=== PATIENT | female | born 1940 | race Caucasian/White ===

== ENCOUNTER 2016-06-09 13:01 | Inpatient (IN) ==
[2016-06-09] MEDS ORDERED: Naloxone 0.4 MG/ML INJ IVP PRN (16:02)
[2016-06-09] MEDS ORDERED: Ondansetron 4 MG/2 ML VIAL IVP PRN (16:02)
[2016-06-09] MEDS ORDERED: 0.9 % Sodium Chloride 1,000 ML IVC SCH (16:15)
--- NOTE | 2016-06-09 16:23 | Internal Med History&Physical ---
<Clifford Noland - Last Filed: 06/09/16 16:19> Date of Encounter: 06/09/16 Time of Encounter: 16:19 Assessment and Plan (1) TIA (transient ischemic attack) Current visit: Yes Status: Acute TIA vs acute CVA, left sided tingling/numbness/weakness improving, will check echo, carotid u/s, PT/OT, fall/aspiration precaution, obtain brain MRI, con't statin, she already received full dose ASA in the ER, since she takes baby ASA daily, will switch to plavix, will obtain brain MRI today. Closely monitor her VS. Qualifiers: Qualified Code(s): G45.9 - Transient cerebral ischemic attack, unspecified (2) History of left breast cancer Current visit: Yes Status: Acute Hx of stage I breast cancer, s/p mastectomy, con't home meds of femara. (3) HLD (hyperlipidemia) Current visit: Yes Status: Acute Check lipid panel, con't statin. Qualifiers: Qualified Code(s): E78.5 - Hyperlipidemia, unspecified (4) Depression Current visit: Yes Status: Acute Con't zoloft. Qualifiers: Qualified Code(s): F32.9 - Major depressive disorder, single episode, unspecified (5) HTN (hypertension) Current visit: Yes Status: Acute Con't atenolol. Qualifiers: Qualified Code(s): I10 - Essential (primary) hypertension (6) DVT prophylaxis Current visit: Yes Status: Acute Heparin SQ BID. Internal Medicine - H&P: HPI Chief complaint: Left sided tingling/numbness Admitted From: Emergency Dept Plans for Post Hospital Care: Home History of present illness: Ms. Steward is a 76 year old female with hx of left stage I breast cancer s/p mastectomy 3 yrs ago, presented to [facility] for left upper extremity tingling/ numbness/weakness when she woke up this AM around 7:30 AM, also she felt left sided facial numbness but no drooping or slurred speech. No hx of prior CVA or TIA. She takes baby ASA and statin at home, no hx of DM or CAD but HTN in which she takes atenolol, her BP is stable at home. When I saw her in the room she stated that her tingling/numbness has improved. CT of head w/o contrast at [facility] showed no acute process, she was given full dose ASA in the ER. Past Med Surg Social Fam HX - Past Medical History Medical history: cancer (left stage I breast), GERD, hypertension Psychiatric history: depression - Past Surgical History Surgical History: breast surgery, hysterectomy, orthopedic, other - Social History Smoking Status: Never smoker Alcohol use: none Drug use: none - Family History Mother Hx Family Cardiac Disorders: Yes (CABG) Internal Medicine - H&P: Meds Atenolol [Tenormin] 50 mg PO DAILY 12/27/14 [History] Cyclobenzaprine [Flexeril] 10 mg PO TID PRN 12/27/14 [History] Lovastatin [Mevacor] 20 mg PO HS 12/27/14 [History] Omeprazole [Prilosec] 40 mg PO BID 12/27/14 [History] Tizanidine HCl [Zanaflex] 4 mg PO Q8H PRN 12/27/14 [History] Gabapentin [Neurontin] 600 mg PO TID 12/29/14 [History] Letrozole 2.5 mg PO DAILY #90 tablet 12/29/14 [Rx] Magnesium [Magnesium] 300 mg PO DAILY 12/29/14 [History] Aspirin 325 mg PO DAILY 12/28/15 [History] Forreston-3/Dha/Epa/Fish Oil [Fish Oil] 1,000 mg PO DAILY 12/28/15 [History] Diclofenac Sodium [Voltaren] 50 mg PO BID 06/09/16 [History] Duloxetine [Cymbalta] 30 mg PO DAILY 06/09/16 [History] Trazodone HCl 200 mg PO HS 06/09/16 [History] Allergies No Known Allergies Allergy (Verified 12/29/14 13:11) All Systems PM: A 10-system review of systems was performed and is negative for pertinent findings except as documented above in the HPI. Review of systems: Admits left facial and upper extremity tingling/numbness/slight weakness but denies FLORES, fever/chill, slurred speech, double/blurry vision, SOB, chest pain, abd pain, nausea/emesis or dysuria. - Constitutional Vitals: Temp Pulse Resp BP Pulse Ox 97.8 F 61 15 151/92 96 06/09/16 14:50 06/09/16 14:50 06/09/16 14:50 06/09/16 14:50 06/09/16 14:50 General appearance: Present: cooperative, A&O X 3, pleasant, no acute distress, answers questions appropriately - Head Head exam: Present: atraumatic, normocephalic - Eye Eye exam: Present: PERRL, conjuntiva pink, sclera anicteric Pupils: Present: PERRL - Neck Neck exam general surgery: Present: supple, trachea midline. Absent: lymphadenopathy - Respiratory Respiratory exam: Present: CTAB. Absent: accessory muscle use, rales, rhonchi, wheezes - Cardiovascular Cardiovascular exam: Present: RRR, +S1, +S2. Absent: diastolic murmur, gallop, rubs, systolic murmur - GI/Abdominal GI/Abdominal exam: Present: normal bowel sounds, soft, no peritoneal signs. Absent: distended, tenderness - Extremities Exam Extremities exam: Present: warm, radial pulses palpable and symetrical. Absent : calf tenderness, cyanotic, pedal edema - Neurological Exam Neurological exam: Present: alert, CN II-XII intact, oriented X3. Absent: altered, strengths equal and symetr throughout (left upper extremity 4/5 muscle strenth, rest are fine), pronater drift, facial droop, speech deficit - Skin Skin exam: Present: dry, intact <Keenan Stone - Last Filed: 06/09/16 18:14> Date of Encounter: 06/09/16 Assessment and Plan (1) TIA (transient ischemic attack) Current visit: Yes Status: Acute Qualifiers: Transient cerebral ischemia type: other Qualified Code(s): G45.8 - Other transient cerebral ischemic attacks and related syndromes (2) Acute CVA (cerebrovascular accident) Current visit: Yes Status: Suspected (3) HTN (hypertension) Current visit: Yes Status: Acute Qualifiers: Hypertension type: essential hypertension Qualified Code(s): I10 - Essential (primary) hypertension (4) Breast cancer, left Current visit: No Status: Chronic Qualifiers: Breast location: unspecified site of breast Patient sex: female Qualified Code(s): C50.912 - Malignant neoplasm of unspecified site of left female breast (5) HLD (hyperlipidemia) Current visit: Yes Status: Acute Qualifiers: Hyperlipidemia type: mixed hyperlipidemia Qualified Code(s): E78.2 - Mixed hyperlipidemia (6) Depression Current visit: Yes Status: Acute Qualifiers: Depression Type: major depressive disorder Major depression recurrence: single episode Active/Remission status: in full remission Qualified Code(s) : F32.5 - Major depressive disorder, single episode, in full remission Internal Medicine - H&P: HPI History of present illness: Ms. Steward is a 76 year old female All Systems PM: A 10-system review of systems was performed and is negative for pertinent findings except as documented above in the HPI. - Constitutional Vitals: Temp Pulse Resp BP Pulse Ox 97.8 F 61 15 151/92 96 06/09/16 14:50 06/09/16 14:50 06/09/16 14:50 06/09/16 14:50 06/09/16 14:50 - Attending Attestation I examined this patient and my medical decision-making was reviewed with the Resident Physician on 06/09/16. I agree with the documented findings, disposition and treatment plan as described except to the extent set forth below. Ms. Steward is a 76 y/o female with hx of breast cancer transferred from another hospital due to concern for CVA. She awoke this morning with L facial numbness and LUE tingling. CT of head negative for bleed. No prior hx of CVA. She does have hx of HTN. Currently she feels her symptoms are slightly improved. Her last known well time was last evening. Exam Alert. Comfortable Facial asymmetry noted. Appears to have tongue deviating to R. Heart reg Lungs clear Sensation and strength appear equal bilaterally. Swallow eval performed with water, applesauce and ron cracker. Pt did well with all food/drink and no overt aspiration was noted. I/P 1. Acute CVA - versus TIA. On Plavix. MRI. PT/OT/ST. 2. Breast cancer hx 3. HTN Pt is high risk for further neurological complications and is admitted to inpatient status.
[2016-06-09] MEDS: *HR* Heparin 5,000 UNIT/ML VIAL SQ SCH (18:51)
--- NOTE | 2016-06-09 22:11 | Carotid Imaging Report ---
Carotid Duplex Patient Name:Mary Steward Order Number:[id number] Procedure Date:06/09/2016 Date:1Age:76 yrs Gender:Female Rt.BP:151 / 92 mmHgHeart Rate: Location:[facility] Room #: 2NE18 Behavioral Technician:Delmy Chow KYREE Referring MD:Clifford Noland DO pizza delivery driver:Rodríguez Sousa DO Reading MD:Clifford Bailey MD Primary Indications:TIA vs CVA Risk Factors Yes/No Hypertension Yes Impressions: The bilateral carotid arteries are normal throughout. Recommendations: Test completed on 06/09/2016 at 7:22:00 pm. Findings Carotid Duplex: Rivers scale imaging combined with Doppler flow analysis suggests normal findings bilaterally. Right: The right proximal common carotid artery has a PSV of 71 cm/s and a EDV of 11 cm/s. The right mid common carotid artery has a PSV of 65 cm/s and a EDV of 16 cm/s. The right distal common carotid artery has a PSV of 66 cm/s and a EDV of 14 cm/s. The right bifurcation has a PSV of 59 cm/s and a EDV of 16 cm/s. The right proximal internal carotid artery has a PSV of 54 cm/s and a EDV of 19 cm/s. The right mid internal carotid artery has a PSV of 71 cm/s and a EDV of 17 cm/s. The right distal internal carotid artery has a PSV of 67 cm/s and a EDV of 22 cm/s. The right eca has a PSV of 88 cm/s and a EDV of 14 cm/s. The right vertebral artery has a PSV of 53 cm/s and a EDV of 17 cm/s. There is antegrade spectral Doppler flow patterns. Left: The left proximal common carotid artery has a PSV of 86 cm/s and a EDV of 24 cm/s. The left mid common carotid artery has a PSV of 76 cm/s and a EDV of 17 cm/s. The left distal common carotid artery has a PSV of 72 cm/s and a EDV of 18 cm/s. The left bifurcation has a PSV of 50 cm/s and a EDV of 13 cm/s. The left proximal internal carotid artery has a PSV of 80 cm/s and a EDV of 23 cm/s. The left mid internal carotid artery has a PSV of 85 cm/s and a EDV of 27 cm/s. The left distal internal carotid artery has a PSV of 90 cm/s and a EDV of 27 cm/s. The left eca has a PSV of 96 cm/s and a EDV of 17 cm/s. The left vertebral artery has a PSV of 45 cm/s and a EDV of 11 cm/s. There is antegrade spectral Doppler flow patterns. Prior Study: No prior study available for comparison. Carotid Results Right PSV EDV Assessment Proximal CCA 71 11 Mid CCA 65 16 Distal CCA 66 14 Bifurcation 59 16 Proximal ICA 54 19 Mid ICA 71 17 Distal ICA 67 22 ECA 88 14 Vertebral Artery 53 17 Antegrade Flow Left PSV EDV Assessment Proximal CCA 86 24 Mid CCA 76 17 Distal CCA 72 18 Bifurcation 50 13 Proximal ICA 80 23 Mid ICA 85 27 Distal ICA 90 27 ECA 96 17 Vertebral Artery 45 11 Antegrade Flow Ratio's Right ICA/CCA Ratio: 1.03 ICA/CCA Values: 67/65 Left ICA/CCA Ratio: 1.18 ICA/CCA Values: 90/76 Updated by Clifford Bailey MD on 06/09/2016 10:05:37 PM electronically signed on 06/09/2016 10:05:57 PM with status of Final
[2016-06-10] MEDS ORDERED: Acetaminophen 325 MG TABLET PO PRN (00:20)
[2016-06-10 04:52] LABS: Basophils % 0.7 %; Eosinophils # 0.3 K/mcL (0.0-0.6); Eosinophils % 4.9 %; Hematocrit 39.8 % (35.3-44.9); Hemoglobin 13.2 g/dL (11.5-15.4); Immature Granulocytes % 0.3 % (0-4); Lymphocytes % 32.7 %; Mean Corpuscular HGB Conc 33.2 g/dL (31.6-35.5); Mean Corpuscular Hemoglobin 31.1 pg (28.0-33.3); Mean Corpuscular Volume 93.9 fL (83.0-100.0); Mean Platelet Volume 11.1 fL (9.4-12.4); Monocytes # 0.8 K/mcL (0.0-1.3); Monocytes % 13.3 %; Neutrophils # 2.9 K/mcL (1.6-8.9); Platelet Count 179 K/mcL (140-400); Red Blood Count 4.24 M/mcL (3.82-4.97); Red Cell Distribution Width 13.4 % (11.5-14.5); Segmented Neutrophils % 48.1 %
[2016-06-10 05:08] LABS: BUN/Creatinine Ratio 12 (6-26); Blood Urea Nitrogen 11 mg/dL (7-20); Calcium 8.9 mg/dL (8.6-10.8); Carbon Dioxide 22 mEq/L (19-29); Chloride 110 mEq/L (98-109); Chol/HDL Ratio 6.2 (0-4.9); Cholesterol 156 mg/dL (< 200); Glucose 115 mg/dL (70-99); HDL Cholesterol 25 mg/dL (40-59); LDL Cholesterol,Calculated 98 mg/dL (0-99); Osmolality,Calculated 292 (280-300); Potassium 3.8 mEq/L (3.5-4.5); Sodium 141 mEq/L (136-145); Triglycerides 164 mg/dL (< 150); eGFR For African Americans > 60 (> 60); eGFR For Non-African Americans 58 (> 60)
--- NOTE | 2016-06-10 08:04 | Internal Med Progress Note ---
<Clifford Noland - Last Filed: 06/10/16 10:51> Date of Encounter: 06/10/16 Time of Encounter: 08:04 - Assessment and plan (1) Acute CVA (cerebrovascular accident) Current Visit: Yes Status: Suspected Assessment and plan: Brain MRI showed acute microinfarcts w/in right precentral gyrus and w/in left parietotemporal lobe, echo showed evidence of anurysmal interatrial septal PFO, because of location two different area of cva, concern for embolic stroke, hx of breast cancer on femara currently, she will need hypercoagulable workup as outpt, meanwhile, will obtain doppler b/l LE u/s to r/o blood clots, will consult neuro for any recommendation for anticoagulation vs antiplatelet therapy , she takes baby ASA daily therefore switched to plavix today. PT/OT to evaluate this pt. (2) History of left breast cancer Current Visit: Yes Status: Acute Assessment and plan: Hx of stage I breast cancer, s/p mastectomy, con't home meds of femara. (3) HLD (hyperlipidemia) Current Visit: Yes Status: Acute Assessment and plan: Lipid panel reviewed, con't statin. Qualifiers: Hyperlipidemia type: mixed hyperlipidemia Qualified Code(s): E78.2 - Mixed hyperlipidemia (4) Depression Current Visit: Yes Status: Acute Assessment and plan: Con't zoloft. Qualifiers: Depression Type: major depressive disorder Major depression recurrence: single episode Active/Remission status: in full remission Qualified Code(s) : F32.5 - Major depressive disorder, single episode, in full remission (5) HTN (hypertension) Current Visit: Yes Status: Acute Assessment and plan: Con't atenolol. Qualifiers: Hypertension type: essential hypertension Qualified Code(s): I10 - Essential (primary) hypertension (6) DVT prophylaxis Current Visit: Yes Status: Acute Assessment and plan: Heparin SQ BID. - Subjective Interval history: Pt seen and examined, left UE tingling/numbness improved, no facial tingling, eating fine. - Constitutional Vitals: Temp Pulse Resp BP Pulse Ox 98.5 F 80 15 149/92 93 L 06/10/16 07:41 06/10/16 07:41 06/10/16 07:41 06/10/16 07:41 06/10/16 07:41 General appearance: Present: cooperative, A&O X 3, pleasant, no acute distress, answers questions appropriately - Head Head exam: Present: atraumatic, normocephalic - Eye Eye exam: Present: PERRL, conjuntiva pink, sclera anicteric Pupils: Present: PERRL - Neck Neck exam general surgery: Present: supple, trachea midline. Absent: lymphadenopathy - Respiratory Respiratory exam: Present: CTAB. Absent: accessory muscle use, rales, rhonchi, wheezes - Cardiovascular Cardiovascular exam: Present: RRR, +S1, +S2. Absent: diastolic murmur, gallop, rubs, systolic murmur - GI/Abdominal GI/Abdominal exam: Present: normal bowel sounds, soft, no peritoneal signs. Absent: distended, tenderness - Extremities Exam Extremities exam: Present: warm, radial pulses palpable and symetrical. Absent : calf tenderness, cyanotic, pedal edema - Neurological Exam Neurological exam: Present: CN II-XII intact, oriented X3, no focal deficits. Absent: pronater drift, facial droop, speech deficit - Skin Skin exam: Present: dry, intact Internal Medicine: Result - Labs CBC & Chem 7: 06/10/16 04:36 06/10/16 04:36 Labs: Short CBC 06/10/16 Range/Units 04:36 WBC 6.0 (4.3-11.1) K/mcL Hgb 13.2 (11.5-15.4) g/dL Hct 39.8 (35.3-44.9) % Plt Count 179 (140-400) K/mcL Neutrophils # 2.9 (1.6-8.9) K/mcL BMP 06/10/16 04:36 Sodium 141 Potassium 3.8 Chloride 110 H Carbon Dioxide 22 BUN 11 Creatinine 0.94 Glucose 115 H Calcium 8.9 - Impressions Impressions Brain MRI 06/09/16 16:06 IMPRESSION: Acute microinfarcts within the right precentral gyrus and within the left parietotemporal lobe. The findings were sent to the Radiology Results Communication Center at 9:56 pm on 06/09/2016to be communicated to a licensed caregiver. D/ / Gagandeep Florian MD / Gagandeep Florian MD Interpreting Provider: Gagandeep Florian MD Consult Discharge Plan - Plan Referrals: Rodríguez Sousa DO [Primary Care Provider] - <Keenan Stone - Last Filed: 06/10/16 16:21> Date of Encounter: 06/10/16 - Assessment and plan (1) Cerebrovascular accident (CVA) due to bilateral embolism of middle cerebral arteries Current Visit: Yes Status: Acute (2) Patent foramen ovale with atrial septal aneurysm Current Visit: Yes Status: Chronic (3) Acute CVA (cerebrovascular accident) Current Visit: Yes Status: Suspected (4) HTN (hypertension) Current Visit: Yes Status: Acute Qualifiers: Hypertension type: essential hypertension Qualified Code(s): I10 - Essential (primary) hypertension (5) Breast cancer, left Current Visit: No Status: Chronic Qualifiers: Breast location: unspecified site of breast Patient sex: female Qualified Code(s): C50.912 - Malignant neoplasm of unspecified site of left female breast (6) HLD (hyperlipidemia) Current Visit: Yes Status: Acute Qualifiers: Hyperlipidemia type: mixed hyperlipidemia Qualified Code(s): E78.2 - Mixed hyperlipidemia (7) Depression Current Visit: Yes Status: Acute Qualifiers: Depression Type: major depressive disorder Major depression recurrence: single episode Active/Remission status: in full remission Qualified Code(s) : F32.5 - Major depressive disorder, single episode, in full remission - Constitutional Vitals: Temp Pulse Resp BP Pulse Ox 98.1 F 70 15 157/81 93 L 06/10/16 15:54 06/10/16 15:54 06/10/16 15:54 06/10/16 15:54 06/10/16 15:54 Internal Medicine: Result - Labs CBC & Chem 7: 06/10/16 04:36 06/10/16 04:36 Labs: Short CBC 06/10/16 Range/Units 04:36 WBC 6.0 (4.3-11.1) K/mcL Hgb 13.2 (11.5-15.4) g/dL Hct 39.8 (35.3-44.9) % Plt Count 179 (140-400) K/mcL Neutrophils # 2.9 (1.6-8.9) K/mcL BMP 06/10/16 04:36 Sodium 141 Potassium 3.8 Chloride 110 H Carbon Dioxide 22 BUN 11 Creatinine 0.94 Glucose 115 H Calcium 8.9 - Impressions Impressions Brain MRI 06/09/16 16:06 IMPRESSION: Acute microinfarcts within the right precentral gyrus and within the left parietotemporal lobe. The findings were sent to the Radiology Results Communication Center at 9:56 pm on 06/09/2016to be communicated to a licensed caregiver. D/ / Gagandeep Florian MD / Gagandeep Florian MD Interpreting Provider: Gagandeep Florian MD - Attending Attestation I examined this patient and my medical decision-making was reviewed with the Resident Physician on 06/10/16. I agree with the documented findings, disposition and treatment plan as described except to the extent set forth below. Ms. Steward is currently admitted for acute CVA. She remains high risk due to the potential of worsening neurologic symptoms and potential of further ischemic event. Echo shows PFO and anticoagulation to be started. Ms. Steward appears to be doing better this AM. She is sitting up in chair. Family is visiting. Symptoms seem to have resolved. She is not having any new symptoms and is tolerating diet. MRI showed multiple small CVAs. Exam Alert Comfortable Heart reg Lungs no wheeze Facial weakness and tongue deviation seem better today. I/P 1. Acute bilateral CVAs - most likely cardioembolic. Start coumadin anticoagulation. 2. PFO 3. HTN Further diagnoses and plan as above.
--- NOTE | 2016-06-10 08:04 | ECHO - Doppler Report ---
Echo with Saline Contrast Name: Mary Steward Date of Study: 06/09/2016 Date: 1940 Ht: 67.0 in Medical Record#: [id number] Age: 76 Wt: 225.0 lb Gender: Female BSA: 2.13 Order #: [id number] Location: [facility] Room #: 2NE18 Reading Physician: Hao Calle DO, AMARI, YANNI BANSAL Yarn Worker: Delmy Chow RDCS Ordering Physician: Clifford Noland DO Primary Physician: Rodríguez Sousa DO Indications: Transient Ischemic Attack, Cerebrovascular Accident Impressions: LVEF 60-65%. Normal LV chamber size, wall thickness and function. Mild left ventricular diastolic dysfunction. Normal right ventricular structure and function. Unable to estimate RVSP due to lack of TR jet. No significant valvular dysfunction. Aneurysmal interatrial septal with evidence of a PFO with right to left shunt with agitated saline. Left Ventricular Wall Motion: Rest Echo Findings All wall segments showed normal motion. Findings: Study Quality * Technically adequate exam. ECG Findings * Normal sinus rhythm. Left Ventricle * LVEF 60-65%. * Normal LV chamber size, wall thickness and function. * Mild left ventricular diastolic dysfunction. Right Ventricle * Normal right ventricular structure and function. Left Atrium * Mildly dilated left atrium. Right Atrium * Normal right atrial size. Interatrial Septum * Aneurysmal interatrial septal with evidence of a PFO with right to left shunt with agitated saline. Aortic Valve * Trileaflet aortic valve. * Mildly sclerotic aortic valve leaflets. * No aortic regurgitation. * No aortic stenosis. Mitral Valve * Mild mitral annular calcification * No mitral regurgitation. * No mitral stenosis. Tricuspid Valve * Normal tricuspid valve structure and function. * No tricuspid regurgitation. * Unable to estimate RVSP due to lack of TR jet. Pulmonic Valve * Normal pulmonic valve structure and function. * Trace pulmonic regurgitation. Aorta * Normally sized aortic root. Pericardium * The pericardium appears normal. IVC * The IVC is not well evaluated. Pulmonary Artery * Pulmonary artery not well visualized. History Hypertension Family History of CAD Contrast: Agitated saline 10 ml. Measurements: BP: 151/ 91 2D Normal Values RVIDd: 3.31 cm <2.7 cm IVSd: .98 cm 0.6 - 1.0 cm LVIDd: 5.19 cm 3.7 - 5.6 cm LVPWd: .95 cm 0.6 - 1.1 cm LVIDs: 2.73 cm 1.5 - 3.6 cm AO: 2.70 cm < 4.0 cm LA: 4.40 cm 2.0 - 4.0cm %FS: 47.40 cm >25 % LA volume: 35 Mitral Valve Peak E:.68 m/sec Peak A:.92 m/sec E/A Ratio:0.7 Peak E' Lat Sharif:7.83 cm/s Peak E' Med Sharif:5.72 cm/s E/E' Lat Ratio:8.7 E/E' Med Ratio:11.9 Updated by Hao Calle DO, FACRodrigo, NIMISHA, YANNI on 06/10/2016 8:00:15 AM electronically signed on 06/10/2016 8:01:25 AM with status of Final Wall Motion Franks: 1=Normal, 2=Hypokinesis, 3=Akinesis, 4=Dyskinesis, 5=Aneurysmal, 6=Hyperkinetic, X=Not Visualized (Blank)=Missing
[2016-06-10] MEDS: Letrozole 2.5 MG TABLET PO SCH (08:47)
[2016-06-10] MEDS: *HR* Heparin 5,000 UNIT/ML VIAL SQ SCH (08:48)
--- NOTE | 2016-06-10 15:57 | Neurology - Consult Note ---
Date of Encounter: 06/10/16 Time of Encounter: 15:48 Assessment and Plan (1) Acute CVA (cerebrovascular accident) Current Visit: Yes Status: Suspected Pt has experienced acute bihemispheric cerebral infarcts. This occurred in the face of an aneurysmal anteroseptal atrial defect with PFO. She does have a right to left shunt. We will more than likely dealing with a cardioembolic event. At this point she is however back to her normal baseline. The infarcts on MRI which I did review personally are very small. I do not believe there would be any harm in starting her with oral anticoagulation without having to do an IV bridge and titrate to effect as an outpatient. The carotid duplex Doppler preliminary report is normal. Case was discussed with the internal medicine team. Certainly risk factor management is paramount in this case. She does have a history of hypertension as well as hyperlipidemia. I will reevaluate her at your request. The documentation in the history of HPI and plan were at least partially created by [employer] voice recognition technology by Dr. Ledezma. Errors in grammar, wording or other phrases may exist. If errors are found after the documentation signed, they will be addressed individually in the addendum section of this document when appropriate. History of Present Illness HPI: Ms. Steward is a 76 year old female seen for neurologic consultation secondary michelle is being seen for neurologic consultation due to acute cerebral infarcts. She recalls awakening from her sleep with paresthesias involving the left face and arm. She also c/o LUE weakness initially. She denies any slurred speech. Denies visual changes. She did have a headache last night which is resolved. all of her deficits have since resolved. MRI of the brain does reveal small infarcts of the right precentral gyrus, as well as the left parietal lobe region. Echo cardigram reveals aneurysmal interatrial septum with PFO and R to L shunt. she has been up moving around and feels back to normal. Past Med Surg Social Fam HX - Past Medical History Medical history: cancer (left stage I breast), GERD, hypertension Psychiatric history: depression - Past Surgical History Surgical History: breast surgery, hysterectomy, orthopedic, other - Social History Smoking Status: Never smoker Alcohol use: none Drug use: none - Family History Mother Hx Family Cardiac Disorders: Yes (CABG) Medications and Allergies Atenolol [Tenormin] 50 mg PO DAILY 12/27/14 [History] Cyclobenzaprine [Flexeril] 10 mg PO TID PRN 12/27/14 [History] Lovastatin [Mevacor] 20 mg PO HS 12/27/14 [History] Omeprazole [Prilosec] 40 mg PO BID 12/27/14 [History] Tizanidine HCl [Zanaflex] 4 mg PO Q8H PRN 12/27/14 [History] Gabapentin [Neurontin] 600 mg PO TID 12/29/14 [History] Letrozole 2.5 mg PO DAILY #90 tablet 12/29/14 [Rx] Magnesium [Magnesium] 300 mg PO DAILY 12/29/14 [History] Aspirin 325 mg PO DAILY 12/28/15 [History] [place]-3/Dha/Epa/Fish Oil [Fish Oil] 1,000 mg PO DAILY 12/28/15 [History] Diclofenac Sodium [Voltaren] 50 mg PO BID 06/09/16 [History] Duloxetine [Cymbalta] 30 mg PO DAILY 06/09/16 [History] Trazodone HCl 200 mg PO HS 06/09/16 [History] Allergies No Known Allergies Allergy (Verified 12/29/14 13:11) All Systems: A 10-system review of systems was performed and is negative for pertinent findings except as documented above in the HPI. Review of Systems: 10 point ROS is consistent with the HPI and otherwise negative. Physical Examination - Vital Signs Vital Signs: Initial Vital Signs Temp Pulse Resp BP Pulse Ox 97.8 F 61 15 151/92 96 06/09/16 14:50 06/09/16 14:50 06/09/16 14:50 06/09/16 14:50 06/09/16 14:50 - Neurologic Detailed motor examination: full strength in all major muscle groups Motor examination - right side: 5/5: deltoids, biceps, triceps, wrist flexion, wrist extension, carpenter packing, hip flexors, tibialis Anterior, quadriceps, toe extension (EHL), plantarflexion Motor examination - left side: 5/5: deltoids, biceps, triceps, wrist flexion, wrist extension, hip flexors, carpenter packing, quadriceps, tibialis Anterior, toe extension (EHL), plantarflexion Reflexes: Biceps: 2+, Triceps: 2+, Brachioradialis: 2+, Patella: 0, Achilles: 0 Mental Status Examination: awake, alert, oriented to person, oriented to place, oriented to time, follows commands appropriately, answers questions appropriately, no agnosia, no aphasia, no aproxia Cranial nerve examination: PERRL, EOMI, visual english intact, corneal reflexes brisk symmetrically, sensory to face intact, mastication intact, no facial asymmetry is present, no dysarthria, hearing is intact symmetrically, soft palate elevates bilaterally upon phonation, gag reflex intact, flexes SCM and trapezius muscles symmetrically with full power, tongue protrudes midline, no atrophy or facial fasiculations present Cerebellar examination: no dysmetria, performs finger to nose and heel to vergara symmetrically without ataxia, no gait ataxia, no truncal ataxia, no difficulty with rapid alternating movements Results - Laboratory Findings CBC and BMP: 06/10/16 04:36 06/10/16 04:36 Abnormal lab findings: Abnormal lab results Chloride 110 mEq/L (98-109) H 06/10/16 04:36 Est GFR (Non-Af Amer) 58 (> 60) L 06/10/16 04:36 Glucose 115 mg/dL (70-99) H 06/10/16 04:36 Triglycerides 164 mg/dL (< 150) H 06/10/16 04:36 VLDL Cholesterol, Calc 33 mg/dL (< 31) H 06/10/16 04:36 HDL Cholesterol 25 mg/dL (40-59) L 06/10/16 04:36 Cholesterol/HDL Ratio 6.2 (0-4.9) H 06/10/16 04:36 Consult Discharge Plan - Plan Referrals: Rodríguez Sousa DO [Primary Care Provider] -
[2016-06-10] MEDS ORDERED: *HR* Warfarin 5 MG TABLET PO SCH (18:00)
[2016-06-11 06:16] LABS: INR 1.1
[2016-06-11 07:06] VITALS: BP 151/91
--- NOTE | 2016-06-11 07:45 | Discharge Summary ---
<Clifford Noland - Last Filed: 06/11/16 10:21> Date of Encounter: 06/11/16 Time of Encounter: 07:45 - Discharge Diagnosis (1) Acute CVA (cerebrovascular accident) Priority: Primary Status: Suspected (2) History of left breast cancer Priority: Secondary Status: Acute (3) HLD (hyperlipidemia) Priority: Secondary Status: Acute Qualifiers: Hyperlipidemia type: mixed hyperlipidemia Qualified Code(s): E78.2 - Mixed hyperlipidemia (4) Depression Priority: Secondary Status: Acute Qualifiers: Depression Type: major depressive disorder Major depression recurrence: single episode Active/Remission status: in full remission Qualified Code(s) : F32.5 - Major depressive disorder, single episode, in full remission (5) HTN (hypertension) Priority: Secondary Status: Acute Qualifiers: Hypertension type: essential hypertension Qualified Code(s): I10 - Essential (primary) hypertension (6) DVT prophylaxis Priority: Secondary Status: Acute - Discharge Medications Prescriptions: Warfarin [Coumadin] 5 mg PO 1800 #30 tablet Home Medications: Atenolol [Tenormin] 50 mg PO DAILY 12/27/14 [History] Cyclobenzaprine [Flexeril] 10 mg PO TID PRN 12/27/14 [History] Lovastatin [Mevacor] 20 mg PO HS 12/27/14 [History] Omeprazole [Prilosec] 40 mg PO BID 12/27/14 [History] Tizanidine HCl [Zanaflex] 4 mg PO Q8H PRN 12/27/14 [History] Gabapentin [Neurontin] 600 mg PO TID 12/29/14 [History] Letrozole 2.5 mg PO DAILY #90 tablet 12/29/14 [Rx] Magnesium 300 mg PO DAILY 12/29/14 [History] [place]-3/Dha/Epa/Fish Oil [Fish Oil Dr 500 mg Softgel] 1,000 mg PO DAILY [History] Diclofenac Sodium [Voltaren] 50 mg PO BID 06/09/16 [History] Duloxetine [Cymbalta] 30 mg PO DAILY 06/09/16 [History] Trazodone HCl 200 mg PO HS 06/09/16 [History] Sertraline [Zoloft] 50 mg PO DAILY tablet 06/11/16 [Rx] Warfarin [Coumadin] 5 mg PO 1800 #30 tablet 06/11/16 [Rx] Allergies/Adverse Reactions: Allergies No Known Allergies Allergy (Verified 12/29/14 13:11) Procedures/tests Complete & Pending: Procedures Performed prior 72 hours Category Date Time Status MR head/brain wo con [MR] Routine MRI 06/09/16 16:06 Completed EV carotid duplex imaging BI Routine Y 06/09/16 16:06 Completed EV echocardiogram Routine Y 06/09/16 15:50 Completed Venous Doppler [EV venous imaging LE BI] Routine Y 06/10/16 10:47 Completed Date of admission: 06/09/16 18:05 Primary care physician: Rodríguez Sousa, Consults: 06/09/16 15:40 Consult to Radio Sportscaster [CONS] Routine Reason for SW Consult: discharge planning Consult to Speech Therapy [CONS] Stat Comment: Evaluate, develop and implement POC Reason for Consult: dysphagia screen Call Completed: Yes 06/09/16 16:05 Consult to Occupational Therapy [CONS] Routine Comment: Evaluate, develop and implement POC Consult to Physical Therapy [CONS] Routine Comment: Evaluate, develop and implement POC 06/09/16 22:35 Consult to Neurology [CONS] Routine Consulting Provider: Neurology [facility] Reason for Consult: Pt with left sided-tingling/numbness x 15 hours. MRI with lacunar infarcts in right precentral gyrus and left parietal-temporal lobe. Please see patient and advise. Call Completed: No Discharging clinician: Clifford Noland Anticipated date of discharge: 06/11/16 - Patient Status Disposition: Home, Self-Care Condition: Good Functional capacity at discharge: uses cane/walker (fall precaution) Overall status at discharge: patient is progressing back to baseline - Discharge Instructions Instructions: Lovastatin (By mouth), Warfarin (By mouth), Peripheral Vascular Disorders (DC), Ischemic Stroke (DC), Ischemic Stroke (GEN), Chronic Hypertension (DC) Follow Up With: Rodríguez Sousa, [Primary Care Provider] - (F/u in a week for hospital d/ c f/u, coumadin therapy, check INR, hypercoagulable work or referral to hem/onc and other meds.) Additional Instructions: Patient and family educated to follow up with [facility] at [phone]. Prescription also given to patient family. She will need to follow up with them to monitor her PT/INR and further education on diet and medication interactions. Lalitha RN - Diet and Activity Activity: resume usual activities as tolerated Diet: low fat, low cholesterol, low salt diet Hospital course: Ms. Steward is a 76 year old female with hx of left stage I breast cancer s/p mastectomy 3 yrs ago, presented to [place] [facility] for left upper extremity tingling/ numbness/weakness when she woke up, brain mri showed acute microinfarcts w/in right precentral gyrus and w/in left parietotemporal lobe, echo showed evidence of anurysmal interatrial septal PFO, because of location two different area of cva, concern for embolic stroke, neuro consulted and recommended anticoagulation , PT/OT said no rehab needed, carotic and b/l LE u/s were normal, therefore she will be d/c today with coumadin, f/u with coumadin clinic for INR check. - Time Spent with Patient Total time spent providing and/or coordinating discharge services: - Constitutional Vitals: Temp Pulse Resp BP Pulse Ox 98.4 F 72 15 151/91 95 06/11/16 07:04 06/11/16 07:04 06/11/16 07:04 06/11/16 07:04 06/11/16 07:04 General appearance: Present: cooperative, A&O X 3, pleasant, no acute distress, answers questions appropriately - Head Head exam: Present: atraumatic, normocephalic - Eye Eye exam: Present: PERRL, conjuntiva pink, sclera anicteric Pupils: Present: PERRL - Neck Neck exam general surgery: Present: supple, trachea midline. Absent: lymphadenopathy - Respiratory Respiratory exam: Present: CTAB. Absent: accessory muscle use, rales, rhonchi, wheezes - Cardiovascular Cardiovascular exam: Present: RRR, +S1, +S2. Absent: diastolic murmur, gallop, rubs, systolic murmur - GI/Abdominal GI/Abdominal exam: Present: normal bowel sounds, soft, no peritoneal signs. Absent: distended, tenderness - Extremities Exam Extremities exam: Present: warm, radial pulses palpable and symetrical. Absent : calf tenderness, cyanotic, pedal edema - Neurological Exam Neurological exam: Present: CN II-XII intact, oriented X3, no focal deficits. Absent: pronater drift, facial droop, speech deficit - Skin Skin exam: Present: dry, intact <Keenan Stone A - Last Filed: 06/11/16 13:05> Date of Encounter: 06/11/16 - Discharge Diagnosis (1) Cerebrovascular accident (CVA) due to bilateral embolism of middle cerebral arteries Priority: Primary Status: Acute (2) Patent foramen ovale with atrial septal aneurysm Priority: Primary Status: Chronic (3) Acute CVA (cerebrovascular accident) Priority: Primary Status: Suspected (4) HTN (hypertension) Priority: Secondary Status: Acute Qualifiers: Hypertension type: essential hypertension Qualified Code(s): I10 - Essential (primary) hypertension (5) Breast cancer, left Priority: Secondary Status: Chronic Qualifiers: Breast location: unspecified site of breast Patient sex: female Qualified Code(s): C50.912 - Malignant neoplasm of unspecified site of left female breast (6) HLD (hyperlipidemia) Priority: Secondary Status: Acute Qualifiers: Hyperlipidemia type: mixed hyperlipidemia Qualified Code(s): E78.2 - Mixed hyperlipidemia (7) Depression Priority: Secondary Status: Acute Qualifiers: Depression Type: major depressive disorder Major depression recurrence: single episode Active/Remission status: in full remission Qualified Code(s) : F32.5 - Major depressive disorder, single episode, in full remission Procedures/tests Complete & Pending: Procedures Performed prior 72 hours Category Date Time Status MR head/brain wo con [MR] Routine MRI 06/09/16 16:06 Completed EV carotid duplex imaging BI Routine Y 06/09/16 16:06 Completed EV echocardiogram Routine Y 06/09/16 15:50 Completed Venous Doppler [EV venous imaging LE BI] Routine Y 06/10/16 10:47 Completed - Notes to Outpatient Provider Pt started on Coumadin due to bilateral strokes presumed related to atrial septal defect. Date of admission: 06/09/16 18:05 Primary care physician: Rodríguez Sousa, Consults: 06/09/16 15:40 Consult to Radio Sportscaster [CONS] Routine Reason for SW Consult: discharge planning Consult to Speech Therapy [CONS] Stat Comment: Evaluate, develop and implement POC Reason for Consult: dysphagia screen Call Completed: Yes 06/09/16 16:05 Consult to Occupational Therapy [CONS] Routine Comment: Evaluate, develop and implement POC Consult to Physical Therapy [CONS] Routine Comment: Evaluate, develop and implement POC 06/09/16 22:35 Consult to Neurology [CONS] Routine Consulting Provider: Neurology [facility] Reason for Consult: Pt with left sided-tingling/numbness x 15 hours. MRI with lacunar infarcts in right precentral gyrus and left parietal-temporal lobe. Please see patient and advise. Call Completed: No Hospital course: Ms. Steward is a 76 year old female - Time Spent with Patient Total time spent providing and/or coordinating discharge services: 38min - Constitutional Vitals: Temp Pulse Resp BP Pulse Ox 98.4 F 72 15 151/91 95 06/11/16 07:04 06/11/16 07:04 06/11/16 07:04 06/11/16 07:04 06/11/16 09:00 - Attending Attestation I examined this patient and my medical decision-making was reviewed with the Resident Physician on 06/11/16. I agree with the documented findings, disposition and treatment plan as described except to the extent set forth below. Ms. Steward feels well today. She has no new symptoms and her prior symptoms appeared to have resolved. Exam Alert. Comfortable Heart reg Lungs no wheeze Duplex negative for DVT. I/P 1. Acute bilateral CVA related to PFO (atrial septal defect) - start coumadin. Follow at coumadin clinic. Needs education as well. 2. Hx breast CA Further diagnoses and plan as above. Pt medically stable for d/c today.
[2016-06-11] MEDS: Letrozole 2.5 MG TABLET PO SCH (09:50)
--- NOTE | 2016-06-12 06:46 | Venous Imaging Report ---
LE Venous Duplex Patient Name:Mary Steward Order Number:[id number] Procedure Date:06/10/2016 Date:1Age:76 yrs Gender:Female Location:[facility] Room #: 18 Dried Fruit Washer:Dilan Neves RDCS Referring MD:Clifford Noland DO network services project manager:None Reading MD:Clifford Bailey MD Primary Indications:Pain in limb Secondary Indications: Impressions: Normal bilateral lower extremity deep and superficial venous exam. Findings Venous Duplex Results: Right: Venous imaging of the lower extremity reveals full patency and normal vessel compressibility of the right distal iliac, right common femoral, right superficial femoral, right popliteal, right posterior tibial, right saphenofemoral junction, right great saphenous and right lesser saphenous. Doppler signals in the evaluated veins were normal. Left: Venous imaging of the lower extremity reveals full patency and normal vessel compressibility of the left distal iliac, left common femoral, left superficial femoral, left popliteal, left posterior tibial, left peroneal, left saphenofemoral junction, left great saphenous and left lesser saphenous. Doppler signals in the evaluated veins were normal. Prior Study: No prior study available for comparison. Lower Extremity Venous Duplex Side Vein Compress Spontaneous Flow Augment Diameter (cm) Depth (cm) Right Distal Iliac Normal Yes Phasic Yes Right Common Femoral Normal Yes Phasic Yes Right Superficial Femoral Normal Yes Phasic Yes Right Popliteal Normal Yes Phasic Yes Right Posterior Tibial Normal Yes Phasic Yes Right Saphenofemoral Junction Normal Yes Phasic Yes Right Great Saphenous Normal Yes Phasic Yes Right Lesser Saphenous Normal Yes Phasic Yes Left Distal Iliac Normal Yes Phasic Yes Left Common Femoral Normal Yes Phasic Yes Left Superficial Femoral Normal Yes Phasic Yes Left Popliteal Normal Yes Phasic Yes Left Posterior Tibial Normal Yes Phasic Yes Left Peroneal Normal Yes Phasic Yes Left Saphenofemoral Junction Normal Yes Phasic Yes Left Great Saphenous Normal Yes Phasic Yes Left Lesser Saphenous Normal Yes Phasic Yes Updated by Clifford Bailey MD on 06/12/2016 6:40:33 AM electronically signed on 06/12/2016 6:40:45 AM with status of Final
== END 2016-06-11 12:56 | disposition home or self-care (01) | DRG 65 ==
LOC: 2NENU
PROVIDERS: ADMIT Internal Medicine; ATTEND Internal Medicine

== ENCOUNTER 2017-03-26 06:10 | Inpatient (IN) ==
--- NOTE | 2017-03-25 20:57 | Discharge Summary ---
<Lakeisha Lagunas - Last Filed: 03/25/17 20:55> Date of Encounter: 03/25/17 - Discharge Diagnosis (1) Arthritis of left hip Priority: Primary Status: Acute (2) Status post total hip replacement, left Priority: Primary Status: Acute (3) Obesity Priority: Secondary Status: Chronic Qualifiers: Obesity type: due to excess calories Obesity classification: unspecified obesity classification Serious obesity comorbidity presence: unspecified whether serious comorbidity present Qualified Code(s): E66.09 - Other obesity due to excess calories; Z68.32 - Body mass index (BMI) 32.0-32.9, adult; Z68.32 - Body mass index (BMI) 32.0-32.9, adult (4) Anticoagulated Priority: Secondary Status: Chronic (5) History of left breast cancer Priority: Secondary Status: Chronic (6) HLD (hyperlipidemia) Priority: Secondary Status: Chronic Qualifiers: Hyperlipidemia type: pure hypercholesterolemia Qualified Code(s): E78.00 - Pure hypercholesterolemia, unspecified; E78.0 - Pure hypercholesterolemia (7) HTN (hypertension) Priority: Secondary Status: Chronic Qualifiers: Hypertension type: essential hypertension (8) Cerebrovascular accident (CVA) due to bilateral embolism of middle cerebral arteries Priority: Secondary Status: Chronic - Discharge Medications Home Medications: Atenolol [Tenormin] 50 mg PO DAILY 12/27/14 [History] Cyclobenzaprine [Flexeril] 10 mg PO TID PRN 12/27/14 [History] Lovastatin [Mevacor] 20 mg PO HS 12/27/14 [History] Omeprazole [Prilosec] 40 mg PO BID 12/27/14 [History] Letrozole 2.5 mg PO DAILY #90 tablet 12/29/14 [Rx] Diclofenac Sodium [Voltaren] 50 mg PO BID 06/09/16 [History] Trazodone HCl 200 mg PO HS 06/09/16 [History] Warfarin [Coumadin] 5 mg PO 1800 #30 tablet 06/11/16 [Rx] Enoxaparin [Lovenox] 40 mg SQ Q12HR #6 syr 03/25/17 [Rx] OxyCODONE Immed Rel [Roxicodone 5 MG] 5 mg PO Q6HR PRN #28 tablet 03/25/17 [Rx] Enoxaparin [Lovenox] 40 mg SQ HS 03/26/17 [History] Furosemide [Lasix] 20 mg PO DAILY PRN 03/26/17 [History] Allergies/Adverse Reactions: 3 Allergy/AdvReac Type Severity Reaction Status Date / Time No Known Allergies Allergy Verified 03/26/17 07:39 Primary care physician: Rodríguez Sousa, - Patient Status Disposition: Transfer Inpatient Rehab Fac Condition: Good - Discharge Instructions Follow Up With: Rodríguez Sousa DO [Primary Care Provider] - - Hospital Course Hospital course: Ms. Steward is a 76 year old female - Time Spent with Patient Total time spent providing and/or coordinating discharge services: <Kobe Silverman Yury - Last Filed: 03/31/17 06:33> Date of Encounter: 03/31/17 Time of Encounter: 06:32 - Discharge Diagnosis (1) Breast cancer, left Priority: Secondary Status: Chronic Qualifiers: Breast location: unspecified site of breast Estrogen receptor status: unspecified Patient sex: female Qualified Code(s): C50.912 - Malignant neoplasm of unspecified site of left female breast (2) TIA (transient ischemic attack) Priority: Secondary Status: Chronic Qualifiers: Transient cerebral ischemia type: other Qualified Code(s): G45.8 - Other transient cerebral ischemic attacks and related syndromes (3) HLD (hyperlipidemia) Priority: Secondary Status: Chronic Qualifiers: Hyperlipidemia type: pure hypercholesterolemia Qualified Code(s): E78.00 - Pure hypercholesterolemia, unspecified; E78.0 - Pure hypercholesterolemia (4) Depression Priority: Secondary Status: Acute Qualifiers: Depression Type: major depressive disorder Major depression recurrence: single episode Active/Remission status: in full remission Qualified Code(s) : F32.5 - Major depressive disorder, single episode, in full remission (5) HTN (hypertension) Priority: Secondary Status: Chronic Qualifiers: Hypertension type: essential hypertension Qualified Code(s): I10 - Essential (primary) hypertension (6) Acute CVA (cerebrovascular accident) Priority: Secondary Status: Suspected (7) Patent foramen ovale with atrial septal aneurysm Priority: Secondary Status: Chronic (8) Arthritis of left hip Priority: Primary Status: Chronic (9) Status post total hip replacement, left Priority: Primary Status: Acute (10) Obesity Priority: Secondary Status: Chronic Qualifiers: Obesity type: due to excess calories Obesity classification: adult class 1 (BMI 30 - 34.9) Serious obesity comorbidity presence: unspecified whether serious comorbidity present Body mass index: BMI 32.0-32.9 Qualified Code(s) : E66.09 - Other obesity due to excess calories; Z68.32 - Body mass index (BMI) 32.0-32.9, adult; Z68.32 - Body mass index (BMI) 32.0-32.9, adult (11) Anticoagulated Priority: Secondary Status: Chronic (12) Acute blood loss anemia Priority: Primary Status: Acute (13) Acute respiratory failure with hypoxia Priority: Primary Status: Acute Labs on day of discharge: Labs from last 24 hours 03/26/17 03/26/17 07:01 07:01 Hgb 12.0 Hct 37.8 PT 12.2 H INR 1.1 Primary care physician: Rodríguez Sousa, - Patient Status Functional capacity at discharge: uses cane/walker Overall status at discharge: patient is progressing back to baseline - Hospital Course Hospital course: Ms. Steward is a 76 year old female Status post total hip replacement. Postoperative course, complicated by postop hypotension and hypoxemia she spent 3 days in the intensive care unit under the management of the sulfur chloride operator and the intensive care doctors. Patient transferred back to the floor doing better on nasal cannula 4 L. Patient resting comfortably this morning, The patient had an uneventful postoperative course. They received antibiotics and physical therapy and were discharged in stable condition. There will follow-up in the office in 2 weeks. - Time Spent with Patient Total time spent providing and/or coordinating discharge services:
--- NOTE | 2017-03-25 21:04 | Physician Discharge Referral ---
ExtendedCare Referral Info Transfer To: [facility] Provider in Charge: Provider in Charge after Transfer: PCP Institutional Level of Care: Skilled - Diagnosis (1) Arthritis of left hip Priority: Primary Status: Chronic (2) Status post total hip replacement, left Priority: Primary Status: Acute (3) Obesity Priority: Secondary Status: Chronic (4) Anticoagulated Priority: Secondary Status: Chronic (5) History of left breast cancer Priority: Secondary Status: Chronic (6) HLD (hyperlipidemia) Priority: Secondary Status: Chronic (7) HTN (hypertension) Priority: Secondary Status: Chronic (8) Cerebrovascular accident (CVA) due to bilateral embolism of middle cerebral arteries Priority: Secondary Status: Chronic Expected Duration of Placement: < 30 days Prognosis: Good Aware of Diagnosis: Patient Aware of Prognosis: Patient - Transfer Medications Home Medications: Atenolol [Tenormin] 50 mg PO DAILY 12/27/14 [History] Cyclobenzaprine [Flexeril] 10 mg PO TID PRN 12/27/14 [History] Lovastatin [Mevacor] 20 mg PO HS 12/27/14 [History] Omeprazole [Prilosec] 40 mg PO BID 12/27/14 [History] Letrozole 2.5 mg PO DAILY #90 tablet 12/29/14 [Rx] Diclofenac Sodium [Voltaren] 50 mg PO BID 06/09/16 [History] Trazodone HCl 200 mg PO HS 06/09/16 [History] Warfarin [Coumadin] 5 mg PO 1800 #30 tablet 06/11/16 [Rx] Enoxaparin [Lovenox] 40 mg SQ Q12HR #6 syr 03/25/17 [Rx] OxyCODONE Immed Rel [Roxicodone 5 MG] 5 mg PO Q6HR PRN #28 tablet 03/25/17 [Rx] Enoxaparin [Lovenox] 40 mg SQ HS 03/26/17 [History] Furosemide [Lasix] 20 mg PO DAILY PRN 03/26/17 [History] Allergies/Adverse Reactions: 3 Allergy/AdvReac Type Severity Reaction Status Date / Time No Known Allergies Allergy Verified 03/26/17 07:39 - Respiratory Orders Oxygen / L per min (2L per NC) Smoking Cessation: Smoking cessation has been advised. For more information, call the [place] Tobacco Quit Line at 7-479-IVVA-NOW. - Lab Orders Lab Orders: Other (include drug levels w/frequency) (PT/INR until therapeutic) - Ancillary Orders May use pressure relief devices daily prn - Mobility Orders Chair, Ambulate - Rehabiliation Orders Rehab Potential: Good Rehab Orders: ROM Exercises, Evaluation for Physical Therapy, Evaluation for Occupational Therapy - Treatments Skin tear care topically daily PRN per policy List/Other: Opsite dressing, leave intact until first post-operative visit. If dressing becomes >50% saturated, contact office, remove dressing and place appropriate dressing in its place. Do not allow for dressing to get wet. Zipline in place, plan to remove at post-operative day #14-16. Total Joint Precautions x 6 weeks Apply cold therapy 3-6x/day for 20 minutes at a time. Encourage ambulation throughout the day Continue IS daily 10/hour Elevate affected extremity above heart as tolerated. Brace: Wear hip adbuction immobilizer at night x 6 weeks. Lovenox bridge back to Coumadin - PT/INR ordered and to be managed by facility physician until discharge from [facility]. - Diet Orders Regular CERTIFICATION: I certify that the transfer of the above named patient to an Extended Care Facility is necessary for the continuing treatment of the diagnosis listed. The above information is true and accurate reflection of patient's current condition. Confidential - Redisclosure prohibited without a patient's written consent.
--- NOTE | 2017-03-26 06:21 | History & Physical Report ---
Date of Encounter: 03/26/17 Time of Encounter: 06:21 24 Hour HP Update - Instructions Instructions: If the History and Physical is less than 30 days old and was completed prior to A.M. admission and or procedure and has NOT been updated on calendar day of procedure please complete this update prior to performing procedure. - Update Patient reports changes in Medical Condition: No Changes in examination, assessment, or condition: No Changes in Medication: No Preop tests/diagnostics Reviewed: Yes Surgery Remains Indicated: Yes Consent for Planned Operative Procedure(s) Verified: Yes - Pre-Operative Checklist Preoperative Checklist Indicated: No Prophylactic Antibiotic Ordered: Yes Is VTE Prophylaxis Indicated?: Yes
[2017-03-26] MEDS ORDERED: CeFAZolin Syr 2,000MG/20 ML 2,000 MG/20 ML SYRINGE IVPB ONE (06:29)
[2017-03-26] MEDS ORDERED: Plasma-Lyte A (PH 7.4) 1,000 ML IVC SCH (06:30)
[2017-03-26] MEDS ORDERED: Ethanol\\Acetic Acid\\Na Ace\\Ben 1,000 ML IRRIG.SOLN IR ONE (06:49)
--- NOTE | 2017-03-26 07:10 | Anesthesia Evaluation PreOp ---
Date of Encounter: 03/26/17 Time of Encounter: 07:16 - Past History Planned Operation: Left total hip arthroplasty, robotic assisted Cardiac History: HTN, Hyperlipidemia ELECTRICAL CONTROLS ENGINEER History: CVA (mini strokes - no deficits and is currently on warfarin ( bridged with lovenox - with last dose 03-25-17 8 pm; warfarin has been discontinued one week ago)), Other (depression) Other Medical History: Other (hx Left mastectomy (no radiation or chemo)) Anesthesia History: No Prior Anesthetic Complications, Past Anesthesia Alcohol Use: none Drug use: none Medications and Allergies Atenolol [Tenormin] 50 mg PO DAILY 12/27/14 [History] Cyclobenzaprine [Flexeril] 10 mg PO TID PRN 12/27/14 [History] Lovastatin [Mevacor] 20 mg PO HS 12/27/14 [History] Omeprazole [Prilosec] 40 mg PO BID 12/27/14 [History] Tizanidine HCl [Zanaflex] 4 mg PO Q8H PRN 12/27/14 [History] Gabapentin [Neurontin] 600 mg PO TID 12/29/14 [History] Letrozole 2.5 mg PO DAILY #90 tablet 12/29/14 [Rx] Magnesium 300 mg PO DAILY 12/29/14 [History] [place]-3/Dha/Epa/Fish Oil [Fish Oil Dr 500 mg Softgel] 1,000 mg PO DAILY [History] DULoxetine [Cymbalta] 30 mg PO DAILY 06/09/16 [History] Diclofenac Sodium [Voltaren] 50 mg PO BID 06/09/16 [History] Trazodone HCl 200 mg PO HS 06/09/16 [History] Sertraline [Zoloft] 50 mg PO DAILY tablet 06/11/16 [Rx] Warfarin [Coumadin] 5 mg PO 1800 #30 tablet 06/11/16 [Rx] Letrozole [Femara] 2.5 mg PO DAILY #30 tablet 12/19/16 [Rx] Enoxaparin [Lovenox] 40 mg SQ Q12HR #6 syr 03/25/17 [Rx] OxyCODONE Immed Rel [Roxicodone 5 MG] 5 mg PO Q6HR PRN #28 tablet 03/25/17 [Rx] 3 Allergy/AdvReac Type Severity Reaction Status Date / Time No Known Allergies Allergy Verified 03/15/17 09:52 - Meds/Allergy Pre-op Review Medications Reviewed: Yes Allergies Reviewed: Yes Beta Blockers on Current Med List: Yes If Beta Blockers taken, Date/Time (Last Dose taken): 03-26-17 atenolol 4 am Anesthesia Results - Labs Laboratory Tests 06/10/16 03/15/17 03/15/17 04:36 10:50 10:50 WBC 6.4 Hgb 12.8 Hct 40.8 Plt Count 199 PT INR APTT Sodium 140 Potassium 4.4 Chloride 108 Carbon Dioxide 25 BUN 17 Creatinine 1.02 Est GFR ( Amer) > 60 Est GFR (Non-Af Amer) 53 L Glucose 115 H BUN/Creatinine Ratio 17 03/15/17 10:50 WBC Hgb Hct Plt Count PT 21.9 H INR 2.0 APTT 36.2 H Sodium Potassium Chloride Carbon Dioxide BUN Creatinine Est GFR ( Amer) Est GFR (Non-Af Amer) Glucose BUN/Creatinine Ratio - Imaging EKG: report reviewed, image reviewed (SINUS BRADYCARDIA BORDERLINE LEFT AXIS DEVIATION VOLTAGE CRITERIA FOR LVH Left axis deviation POOR R WAVE PROGRESSION) Additional studies: TTE: Impressions: LVEF 60-65%. Normal LV chamber size, wall thickness and function. Mild left ventricular diastolic dysfunction. Normal right ventricular structure and function. Unable to estimate RVSP due to lack of TR jet. No significant valvular dysfunction. Aneurysmal interatrial septal with evidence of a PFO with right to left shunt with agitated saline. Anesthesia Exam Last Vital Signs Temp 98.0 F 03/26/17 06:31 Pulse 62 03/26/17 06:31 Resp 18 03/26/17 06:31 BP 133/80 03/26/17 06:31 Pulse Ox 94 03/26/17 06:31 Weight: 95 kg NPO (# of Hours): > 8 hrs - HEENT Pupil (Motor): Pupils equal, EOMI Mallampati: III Teeth: Edentulous Denture Type: Upper: Complete, Lower: Complete Oral Opening: Greater than 3 - ELECTRICAL CONTROLS ENGINEER LOC: Oriented ELECTRICAL CONTROLS ENGINEER Motor: Normal RUE, Normal LUE, Normal RLE, Normal LLE, Normal Face - Cardiac Rhythm: Regular Murmur: None - Pulmonary Breath Sounds: bilateral Clear Respiratory Effort: Symmetrical Anesthesia Assess/Plan ASA Score: 3 Modified Martha Scale for Level of Consciousness: Cooperative, oriented, and tranquil Anesthetic Plan: General Monitoring Plan: Standard Monitors Recovery Plan: PACU
[2017-03-26 07:24] LABS: INR 1.1; Prothrombin Time 12.2 Seconds (9.4-12.1)
[2017-03-26 07:27] LABS: Hematocrit 37.8 % (35.3-44.9)
[2017-03-26] MEDS ORDERED: EPHEDrine 50 MG/ML VIAL ONE (08:26)
[2017-03-26] MEDS ORDERED: *HR* Propofol 200 MG/20 ML VIAL IVP ONE (08:26)
[2017-03-26] MEDS ORDERED: *HR* FentaNYL (PF) 100 MCG/2 ML VIAL ONE (08:26)
[2017-03-26] MEDS ORDERED: *HR* Succinylcholine 200 MG/10 ML VIAL IVP ONE (08:26)
[2017-03-26] MEDS ORDERED: *HR* Phenylephrine 10 MG/ML VIAL ONE (08:26)
[2017-03-26] MEDS ORDERED: *HR* HYDROmorphone 2 MG/ML SYRINGE ONE (08:26)
[2017-03-26] MEDS ORDERED: Lidocaine -MPF 2% 2 ML VIAL ONE (08:26)
[2017-03-26] MEDS ORDERED: *HR* HYDROmorphone (PF) 1 MG/ML SYRINGE IVP PRN (08:33)
[2017-03-26] MEDS ORDERED: *HR* Labetalol 20 MG/4 ML SYRINGE IVP PRN (08:33)
[2017-03-26] MEDS ORDERED: Ondansetron 4 MG/2 ML VIAL IVP PRN ×2 (08:33→10:29)
--- NOTE | 2017-03-26 09:00 | Orthopedic Operative Note ---
Date of procedure: 03/26/17 Pre-op diagnosis: Left hip arthritis Post-op diagnosis: same Procedure: Procedure: Left Total Hip Replacment robotic-assisted Estimated blood loss: 300 cc Hardware: Metal and polyethylene replacement. Fernando DM Cup: 52 cup Femoral size stem 9 Head: head with Lurdes 0 Procedural Notes: Grade 4 arthritic changes femoral head acetabular socket, procedure performed with robotic assistance. Operative procedure: The patient was brought to the operating room and placed on the operating room table. After general anesthesia was administered the patient was placed in the lateral decubitus position with the operative leg up. All pressure points were padded appropriately and the head was stabilized in the neutral position. The operative extremity was prepped and draped in the sterile surgical fashion patient received IV antibiotic prior to skin incision. 3 Steinmann pins were placed in the iliac crest 3 cm proximal to the anterior superior iliac spine this was for the robotic-assisted sensor. This was done through a small 2 cm incision. A standard posterior approach is made to the operative hip, the incision was made through the skin and subcutaneous tissue hemostasis was obtained with Bovie cautery. Using careful sharp dissection the fascia was identified and incised exposing the external rotators. The femoral checkpoint was placed leg length was measured at this time utilizing robotic assistance. The external rotators were released off the greater trochanter and tagged with # 2 FiberWire suture. The capsule was T'd open and the hip was brought into internal rotation. Patient noted to have grade 4 arthritic changes femoral head. The femoral neck cut was made at the appropriate level roughly Xmm proximal to the lesser trochanter aced on preoperative templating. An anterior capsulotomy was performed for the anterior retractor. Soft tissues removed from the acetabulum. Patient noted to have grade 4 arthritic changes acetabulum. The acetabulum checkpoint was placed confirmed. The acetabulum was then mapped with robotic assistance. Based on the preoperative plan the acetabulum was reamed in one step with a 52 reamer. The 52 acetabulum was impacted with robotic assistance and 40 degrees of abduction and 1 he degrees of anteversion. The hip was brought back in to internal rotation and prepared with the box loader followed by the canal finder followed by the reaming process to a size 9 broaching process in 20 degrees anteversion. It was broached up to the appropriate size 8. Trial reduction revealed leg lengths close to normal. The femoral implant was impacted in place in 20 degrees of anteversion. Trial reduction found the hip to be stable with 0 head and Ulrdes. The trials were removed and the real implants were impacted in place. The hip was reduced, patient had robotic confirmed leg length of 10 mm longer than the contralateral side. The hip had excellent stability with forward flexion to 90 degrees adduction of 30 degrees and internal rotation of 60 degrees. The hip had no shuck. The hip was unstable with the -4 head. The 8 broach had rotational instability. The hips after 2 minutes with a Betadine saline solution. It was irrigated out with 2 L of pulse irrigation. The checkpoints were removed, Steinmann pins were removed. The pin incision and the hip were closed by the PA as well as the hip. The deep tissue was irrigated and closed deep with #1 PDS suture superficially with 0 PDS suture and skin was closed with Dermabond and zip tie. The patient was placed in a sterile dressing and abduction pillow. The patient was extubated and transferred to the recovery room in stable condition. Anesthesia: KHUSHBU Surgeon: Kobe Silverman Recycling Assistant: Raquel Holman Condition: stable Disposition: PACU
[2017-03-26] MEDS ORDERED: Furosemide 20 MG TABLET PO PRN (10:29)
[2017-03-26] MEDS ORDERED: *HR* OxyCODONE Immed Rel 5 MG TABLET PO PRN (10:29)
[2017-03-26] MEDS ORDERED: Naloxone 0.4 MG/ML INJ IVP PRN (10:29)
[2017-03-26] MEDS ORDERED: Letrozole 2.5 MG TABLET PO SCH (10:29)
[2017-03-26] MEDS ORDERED: MOM Conc 10 ML UD.LIQ PO PRN (10:29)
--- NOTE | 2017-03-26 10:31 | Anesthesia Evaluation Post Op ---
Date of Encounter: 03/26/17 Time of Encounter: 10:30 - Vital Signs Vital Signs: Last Vital Signs Temp 97.5 F L 03/26/17 10:24 Pulse 62 03/26/17 10:24 Resp 15 03/26/17 10:24 BP 136/76 03/26/17 10:24 Pulse Ox 92 03/26/17 10:24 - Lungs Lungs: Clear Ascult./Percussion - Airway Airway: Non-obstructed - Cardiovascular Regular Rate - Mental Status Mental Status: Alert & Oriented, Answers Appropriately - Pain Pain Scale: 2 - Nausea Vomiting Nausea Vomiting: Not Present - Hydration Hydration: Ice chips - Discharge PostOp Status: Transfer Patient to floor
[2017-03-26] MEDS: *HR* OxyCODONE Immed Rel 5 MG TABLET PO PRN ×3 (12:10→21:36)
[2017-03-26 14:39] LABS: BUN/Creatinine Ratio 15 (6-26); Blood Urea Nitrogen 14 mg/dL (7-20); Calcium 8.9 mg/dL (8.6-10.8); Carbon Dioxide 18 mEq/L (19-29); Chloride 112 mEq/L (98-109); Glucose 163 mg/dL (70-99); Osmolality,Calculated 296 (280-300); Potassium 4.4 mEq/L (3.5-4.5); Sodium 141 mEq/L (136-145); eGFR For African Americans > 60 (> 60); eGFR For Non-African Americans 58 (> 60)
[2017-03-26] MEDS: Ascorbic Acid 500 MG TABLET PO SCH ×2 (16:19→16:25)
[2017-03-26] MEDS: Multivit/Ca/Min/Fe/FA 1 TAB TABLET PO SCH (16:20)
[2017-03-26] MEDS: Ringers Solution, Lactated 1,000 ML IVC SCH (16:23)
[2017-03-26] MEDS: CeFAZolin Premix DUPLEX 2,000 MG/50 ML BAG IVPB SCH (16:24)
[2017-03-26] MEDS: *HR* Warfarin 5 MG TABLET PO SCH (16:25)
[2017-03-26] MEDS: *HR* Enoxaparin 30 MG/0.3 ML SYRINGE SQ SCH (16:25)
[2017-03-26 16:48] LABS: ABG Base Excess -2 mEq/L (-2 to 3); ABG HCO3 22 mEq/L (21-27); ABG Oxygen Saturation 90 % (95-98); ABG PCO2 33 mmHg (35-45); ABG PH 7.42 pH Units (7.32-7.45); ABG PO2 57 mmHg (85-104); ABG TCO2 23 mEq/L (20-26)
[2017-03-26] MEDS ORDERED: Lidocaine -MPF 1% 5 ML AMPUL INFILT ONE (16:49)
[2017-03-26] MEDS ORDERED: *HR* Enoxaparin 30 MG/0.3 ML SYRINGE SQ SCH (18:00)
[2017-03-26 18:16] LABS: Basophils % 0.3 %; Hematocrit 34.6 % (35.3-44.9); Hemoglobin 10.9 g/dL (11.5-15.4); Immature Granulocytes % 0.6 % (0-4); Lymphocytes % 9.2 %; Mean Corpuscular HGB Conc 31.5 g/dL (31.6-35.5); Mean Corpuscular Hemoglobin 30.4 pg (28.0-33.3); Mean Corpuscular Volume 96.6 fL (83.0-100.0); Mean Platelet Volume 11.8 fL (9.4-12.4); Monocytes # 1.3 K/mcL (0.0-1.3); Monocytes % 11.8 %; Neutrophils # 8.4 K/mcL (1.6-8.9); Nucleated Red Blood Cells 0.2 /100 WBC (0); Platelet Count 144 K/mcL (140-400); Red Blood Count 3.58 M/mcL (3.82-4.97); Red Cell Distribution Width 13.9 % (11.5-14.5); Segmented Neutrophils % 78.1 %
--- NOTE | 2017-03-26 18:19 | Internal Med History&Physical ---
Date of Encounter: 03/26/17 Time of Encounter: 18:10 Assessment and Plan (1) Status post total hip replacement, left Current visit: No Status: Acute Patient hypotensive and hypoxic during surgery with significant reduction of end -tidal CO2. possibilities include fat embolism versus air embolism versus pulmonary embolism versus effect of anesthesia. Creatinine after surgery was .94 and patient had 400 mL of urine after catheter insertion so will get CTA scan of the chest to look for possibility of pulmonary embolism. 12 lead EKG shows no ischemic changes (await troponin). Lung examination would not explain the degree of hypoxia. Arterial blood gas shows a PO2 of 57 on FIO2 32%. Internal Medicine - H&P: HPI Chief complaint: sob History of present illness: Ms. Steward is a 76 year old female who presented the hospital today for elective robotic hip replacement developed hypoxia and hypotension during surgery. We were consulted for further evaluation of the patient. According to discussion with anesthesiologist patient developed hypotension and hypoxia with significant decrease of an tidal CO2. Patient complains of shortness of breath , shares requiring 3 L of oxygen during my interview. She denies any chest pain no cough expectoration fever or chills. No prior history of cardiac disease or venous thromboembolism. Patient denies being sick prior to surgery. Past Med Surg Social Fam HX - Past Medical History Medical history: cancer, GERD, hypertension Psychiatric history: depression - Past Surgical History Surgical History: breast surgery, hysterectomy, orthopedic, other - Social History Smoking Status: Former smoker Smokeless Tobacco Status: No Alcohol use: none Drug use: none - Family History Mother Living Status: Hx Family Cardiac Disorders: Yes (CABG) Internal Medicine - H&P: Meds Atenolol [Tenormin] 50 mg PO DAILY 12/27/14 [History] Cyclobenzaprine [Flexeril] 10 mg PO TID PRN 12/27/14 [History] Lovastatin [Mevacor] 20 mg PO HS 12/27/14 [History] Omeprazole [Prilosec] 40 mg PO BID 12/27/14 [History] Letrozole 2.5 mg PO DAILY #90 tablet 12/29/14 [Rx] Diclofenac Sodium [Voltaren] 50 mg PO BID 06/09/16 [History] Trazodone HCl 200 mg PO HS 06/09/16 [History] Warfarin [Coumadin] 5 mg PO 1800 #30 tablet 06/11/16 [Rx] Enoxaparin [Lovenox] 40 mg SQ Q12HR #6 syr 03/25/17 [Rx] OxyCODONE Immed Rel [Roxicodone 5 MG] 5 mg PO Q6HR PRN #28 tablet 03/25/17 [Rx] Enoxaparin [Lovenox] 40 mg SQ HS 03/26/17 [History] Furosemide [Lasix] 20 mg PO DAILY PRN 03/26/17 [History] 3 Allergy/AdvReac Type Severity Reaction Status Date / Time No Known Allergies Allergy Verified 03/26/17 07:39 All Systems PM: A 10-system review of systems was performed and is negative for pertinent findings except as documented above in the HPI. Review of systems: 10 point review of systems is negative except for HPI - Constitutional Vitals: Temp Pulse Resp BP Pulse Ox 98.6 F 80 20 121/75 90 03/26/17 16:14 03/26/17 16:45 03/26/17 16:45 03/26/17 16:45 03/26/17 16:45 Exam: Gen.: patient is lethargic oriented times 3 cardiac: normal S1 S2 no additional sounds or murmurs chest: no active wheezing or bronchial breathing abdomen soft nontender nondistended normal bowel sounds lower extremity no swelling. Neuro: no new focal deficits Internal Med - H&P Results - Labs CBC & Chem 7: 03/26/17 18:09 03/26/17 14:13 Labs: Short CBC 03/26/17 Range/Units 07:01 Hgb 12.0 (11.5-15.4) g/dL Hct 37.8 (35.3-44.9) % BMP 03/26/17 14:13 Sodium 141 Potassium 4.4 Chloride 112 H Carbon Dioxide 18 L BUN 14 Creatinine 0.94 Glucose 163 H Calcium 8.9 - ABG Interpretation ABG results: 03/26/17 16:39 ABG pH 7.42 ABG pCO2 33 L ABG pO2 57 L ABG HCO3 22 ABG Total CO2 23 ABG O2 Saturation 90 L ABG Base Excess -2 - Impressions ITS Impressions Hip X-Ray 03/26/17 00:01 IMPRESSION: Status post left total hip arthroplasty without immediate complications. D/ / Reina Perez MD / Reina Perez MD Interpreting Provider: Reina Perez MD - VTE Documentation of Mechanical Device: Venous foot pump, device
[2017-03-26 18:31] LABS: Alanine Aminotransferase 56 Units/L (0-55); Albumin 2.8 g/dL (3.5-5.0); Albumin/Globulin Ratio 0.9 (1.1-2.2); Alkaline Phosphatase 64 Units/L (38-126); Aspartate Amino Transferase 85 Units/L (5-34); BUN/Creatinine Ratio 13 (6-26); Bilirubin,Total 0.5 mg/dL (0.2-1.2); Blood Urea Nitrogen 14 mg/dL (7-20); Calcium 8.3 mg/dL (8.6-10.8); Carbon Dioxide 21 mEq/L (19-29); Chloride 108 mEq/L (98-109); Creatine Kinase 441 Units/L (29-168); Glucose 142 mg/dL (70-99); Magnesium 1.9 mg/dL (1.6-2.6); Osmolality,Calculated 293 (280-300); Potassium 3.8 mEq/L (3.5-4.5); Sodium 140 mEq/L (136-145); Total Protein 5.8 g/dL (6.0-8.3); eGFR For African Americans > 60 (> 60); eGFR For Non-African Americans 51 (> 60)
--- NOTE | 2017-03-26 18:32 | Event Note ---
Date of Encounter: 03/26/17 Time of Encounter: 17:00 Patient continued to have persistent hypotension on the unit, despite fluid resuscitation. ABGs, Telemetry and continuous pulse ox ordered. Hospitalist consulted for hypotension. Decision made to transfer patient to ICU for closer monitoring and hospitalist ordering CTA.
[2017-03-26 18:34] LABS: INR 1.2; Prothrombin Time 12.5 Seconds (9.4-12.1)
[2017-03-26 18:38] LABS: Activated Partial Thrombo Time 16.6 Seconds (26.0-36.0)
[2017-03-26] MEDS ORDERED: Piperacillin/Tazobactam 3.375 GM in D5% in Water 50 ML IVPB SCH (19:00)
[2017-03-26] MEDS: 0.9 % Sodium Chloride 500 ML IVC SCH (19:02)
[2017-03-26] MEDS: *HR* HYDROmorphone (PF) 1 MG/ML SYRINGE IVP PRN (19:03)
[2017-03-26] MEDS ORDERED: Temazepam 15 MG CAPSULE PO PRN (21:00)
[2017-03-26] MEDS ORDERED: Sennosides 8.6 MG TABLET PO PRN (21:00)
[2017-03-26] MEDS: traZODone 50 MG TABLET PO SCH (21:35)
[2017-03-27] MEDS: 0.9 % Sodium Chloride 500 ML IVC SCH ×5 (00:29→20:48)
--- NOTE | 2017-03-27 00:31 | Event Note ---
Date of Encounter: 03/27/17 Time of Encounter: 00:30 Called by RN for concerns of fever post-op. I reviewed CTA findings and notes from yesterday. I ordered blood cultures, Tylenol PRN, and added Vancomycin to her Zosyn. Ancef can be stopped as she will be receiving Vancomycin.
[2017-03-27] MEDS ORDERED: Vancomycin 1,500 MG in D5% in Water 250 ML IVPB SCH ×2 (01:00)
[2017-03-27] MEDS: CeFAZolin Premix DUPLEX 2,000 MG/50 ML BAG IVPB SCH (01:16)
[2017-03-27] MEDS: Acetaminophen 325 MG TABLET PO PRN (01:18)
[2017-03-27 01:27] LABS: Hematocrit 33.2 % (35.3-44.9); Hemoglobin 10.7 g/dL (11.5-15.4)
[2017-03-27 01:41] LABS: BUN/Creatinine Ratio 13 (6-26); Blood Urea Nitrogen 13 mg/dL (7-20); Calcium 8.3 mg/dL (8.6-10.8); Carbon Dioxide 21 mEq/L (19-29); Chloride 108 mEq/L (98-109); Glucose 150 mg/dL (70-99); Osmolality,Calculated 291 (280-300); Potassium 3.8 mEq/L (3.5-4.5); Sodium 139 mEq/L (136-145); eGFR For African Americans > 60 (> 60); eGFR For Non-African Americans 56 (> 60)
[2017-03-27] MEDS: Piperacillin/Tazobactam 3.375 GM in D5% in Water 50 ML IVPB SCH ×3 (05:36→21:15)
[2017-03-27] MEDS: *HR* Enoxaparin 30 MG/0.3 ML SYRINGE SQ SCH ×2 (05:37→16:49)
--- NOTE | 2017-03-27 06:55 | Orthopedics Progress Note ---
Date of Encounter: 03/27/17 Time of Encounter: 06:54 - Assessment and Plan (1) Breast cancer, left Current Visit: No Status: Chronic Qualifiers: Breast location: unspecified site of breast Estrogen receptor status: unspecified Patient sex: female Qualified Code(s): C50.912 - Malignant neoplasm of unspecified site of left female breast (2) TIA (transient ischemic attack) Current Visit: No Status: Chronic Qualifiers: Transient cerebral ischemia type: other Qualified Code(s): G45.8 - Other transient cerebral ischemic attacks and related syndromes (3) HLD (hyperlipidemia) Current Visit: No Status: Chronic Qualifiers: Hyperlipidemia type: pure hypercholesterolemia Qualified Code(s): E78.00 - Pure hypercholesterolemia, unspecified; E78.0 - Pure hypercholesterolemia (4) Depression Current Visit: No Status: Acute Qualifiers: Depression Type: major depressive disorder Major depression recurrence: single episode Active/Remission status: in full remission Qualified Code(s) : F32.5 - Major depressive disorder, single episode, in full remission (5) HTN (hypertension) Current Visit: No Status: Chronic Qualifiers: Hypertension type: unspecified secondary hypertension Qualified Code(s): I15.9 - Secondary hypertension, unspecified; I15 - Secondary hypertension (6) Acute CVA (cerebrovascular accident) Current Visit: No Status: Suspected (7) Patent foramen ovale with atrial septal aneurysm Current Visit: No Status: Chronic (8) Arthritis of left hip Current Visit: No Status: Chronic (9) Status post total hip replacement, left Current Visit: No Status: Acute (10) Obesity Current Visit: No Status: Chronic Qualifiers: Obesity type: due to excess calories Obesity classification: adult class 1 (BMI 30 - 34.9) Serious obesity comorbidity presence: unspecified whether serious comorbidity present Body mass index: BMI 32.0-32.9 Qualified Code(s) : E66.09 - Other obesity due to excess calories; Z68.32 - Body mass index (BMI) 32.0-32.9, adult; Z68.32 - Body mass index (BMI) 32.0-32.9, adult (11) Anticoagulated Current Visit: No Status: Chronic Subjective Interval history: Patient was seen this morning in the ICU doing well without complaints. Afebrile vital signs stable. Operative extremity: Neurovascularly intact Dressing clean dry and intact Calves nontender Assessment and plan: Continue with postoperative care Hematocrit 34, all workup negative for fat embolism suspicion of infection recommend transferred out of ICU to orthopedic floor. Objective Vital signs: Vital Signs Temp Pulse Resp BP Pulse Ox 03/27/17 06:00 94 20 96/53 86 03/27/17 04:08 98.6 F 95 16 98/58 93 03/27/17 02:00 89 19 107/64 94 03/27/17 00:21 101.2 F H 03/27/17 00:00 99 16 112/69 90 03/26/17 22:00 89 20 131/72 92 03/26/17 21:41 99.7 F H 03/26/17 20:00 86 20 125/77 90 03/26/17 19:00 87 18 132/76 91 03/26/17 18:00 99.2 F 81 20 140/78 96 03/26/17 16:45 80 20 121/75 90 03/26/17 16:14 98.6 F 74 18 125/72 93 03/26/17 15:19 76/51 03/26/17 14:58 98.1 F 81 16 94/61 93 03/26/17 13:00 37.5 F L 74 16 118/72 93 03/26/17 12:04 97.5 F L 72 16 126/88 93 03/26/17 11:06 97.4 F L 67 15 126/81 93 03/26/17 10:46 95 03/26/17 10:40 97.5 F L 64 18 130/84 92 03/26/17 10:24 97.5 F L 62 15 136/76 92 03/26/17 10:14 65 13 147/87 98 03/26/17 10:04 64 14 134/73 97 03/26/17 09:54 97.0 F L 64 16 137/78 98 Intake and Output 03/26/17 03/26/17 03/27/17 15:59 23:59 07:59 Intake Total 0 / 0 1070 / 1070 1050 / 1050 Output Total 300 / 300 550 / 550 200 / 200 Balance -300 / -300 520 / 520 850 / 850 Intake: IV Fluids 1070 / 1070 1050 / 1050 0.9 % Sodium Chloride 500 ML @ 1000 / 1000 100 mls/hr IVC .Q5H [facility] Rx#: [id number] Plasma-Lyte A (PH 7.4) 1,000 ML 1000 / 1000 @ 25 mls/hr IVC .Q24H [facility] Rx#: [id number] Ancef Premix DUPLEX 2,000 mg In 50 / 50 50 ml @ 100 mls/hr IVPB Q8HR [facility] Rx#:[id number] Ancef Syringe 2,000 MG/20 ML 2, 20 / 20 000 mg In 20 ml @ 200 mls/hr IVPB PREOP ONE Rx#:[id number] Zosyn 3.375 GM In Dextrose 5% ( 50 / 50 ADD-[place]) 50 ML @ 12.5 mls/ hr IVPB Q6H [facility] Rx#:[id number] Oral 0 / 0 Output: Urine 0 / 0 Estimated Blood Loss 300 / 300 Catheter 550 / 550 200 / 200 Other: Weight 98.4 kg Patient Weight 03/27/17 23:59 Weight 98.4 kg - Labs CBC & BMP: 03/27/17 01:15 03/27/17 01:15 Labs: Abnormal lab results RBC 3.58 M/mcL (3.82-4.97) L 03/26/17 18:09 Hgb 10.7 g/dL (11.5-15.4) L 03/27/17 01:15 Hct 33.2 % (35.3-44.9) L 03/27/17 01:15 MCHC 31.5 g/dL (31.6-35.5) L 03/26/17 18:09 Nucleated RBCs/100 WBC 0.2 /100 WBC (0) H 03/26/17 18:09 PT 12.5 Seconds (9.4-12.1) H 03/26/17 18:09 APTT 16.6 Seconds (26.0-36.0) L 03/26/17 18:09 ABG pCO2 33 mmHg (35-45) L 03/26/17 16:39 ABG pO2 57 mmHg (85-104) L 03/26/17 16:39 ABG O2 Saturation 90 % (95-98) L 03/26/17 16:39 Est GFR (Non-Af Amer) 56 (> 60) L 03/27/17 01:15 Glucose 150 mg/dL (70-99) H 03/27/17 01:15 POC Glucose 143 (58-89) H 03/26/17 18:06 Lactic Acid 2.7 mmol/L (0.5-2.2) H 03/26/17 18:09 Calcium 8.3 mg/dL (8.6-10.8) L 03/27/17 01:15 AST 85 Units/L (5-34) H 03/26/17 18:09 ALT 56 Units/L (0-55) H 03/26/17 18:09 Creatine Kinase 483 Units/L (29-168) H 03/27/17 01:15 Serum Total Protein 5.8 g/dL (6.0-8.3) L 03/26/17 18:09 Albumin 2.8 g/dL (3.5-5.0) L 03/26/17 18:09 Albumin/Globulin Ratio 0.9 (1.1-2.2) L 03/26/17 18:09 - VTE Documentation of Mechanical Device: Venous foot pump, device Consult Discharge Plan - Plan Referrals: Rodríguez Sousa DO [Primary Care Provider] -
[2017-03-27] MEDS: Ascorbic Acid 500 MG TABLET PO SCH ×2 (08:56→16:34)
[2017-03-27] MEDS: Multivit/Ca/Min/Fe/FA 1 TAB TABLET PO SCH (08:56)
[2017-03-27] MEDS: Ipratropium/Albuterol Neb 3 ML IH SCH ×4 (10:09→21:35)
[2017-03-27] MEDS: *HR* OxyCODONE Immed Rel 5 MG TABLET PO PRN ×2 (12:02→23:59)
--- NOTE | 2017-03-27 13:42 | Internal Med Progress Note ---
Date of Encounter: 03/27/17 Time of Encounter: 11:30 - Assessment and plan (1) Acute respiratory failure with hypoxia Current Visit: Yes Status: Acute Assessment and plan: Acute hypoxic respiratory failure - unclear etiology - patient currently on BiPAP at 80% Continue DuoNeb breathing treatment, empiric IV Zosyn, IV Vancomycin CTA chest - negative for PE, mild patchy opacities in the right apex, small noncalcified pulmonary nodule EKG - pending Troponin - 0.01 Echocardiogram - LVEF 65%, mild LV diastolic dysfunction, normal RV, aneurysmal interatrial septum ABG - reviewed Initial suspicion of PE or fat embolism has been ruled out, unlikely to be CHF May need pulmonology consult if patient continues to have persistent hypoxia Cardiac monitoring, continuous pulse ox, labs in a.m., monitor closely (2) Status post total hip replacement, left Current Visit: No Status: Acute Assessment and plan: 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 Silverman (3) HLD (hyperlipidemia) Current Visit: Yes Status: Chronic Assessment and plan: Continue Lovastatin Qualifiers: Hyperlipidemia type: pure hypercholesterolemia Qualified Code(s): E78.00 - Pure hypercholesterolemia, unspecified; E78.0 - Pure hypercholesterolemia (4) HTN (hypertension) Current Visit: Yes Status: Chronic Assessment and plan: Essential hypertension, controlled, monitor Continue home dose of Tenormin Qualifiers: Hypertension type: essential hypertension Qualified Code(s): I10 - Essential (primary) hypertension (5) History of left breast cancer Current Visit: No Status: Chronic Assessment and plan: 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 Patient is currently on Letrozole Follows up regularly with oncology (6) H/O: CVA (cerebrovascular accident) Current Visit: Yes Status: Chronic Assessment and plan: History of bihemispheric cerebral lacunar infarcts within the right precentral gyrus and left parietotemporal lobe No obvious residual hemiparesis Patient is on Lovastatin and Coumadin at home Patient does have a history of PFO and that is why she is on anticoagulation with Coumadin (7) Patent foramen ovale with atrial septal aneurysm Current Visit: Yes Status: Chronic Assessment and plan: PFO with atrial septal aneurysm - seen is a small mobile echodensity in the LA Continue Coumadin for anticoagulation (8) DVT prophylaxis Current Visit: Yes Status: Acute Assessment and plan: Continue Coumadin for anticoagulation - Time Spent With Patient 25 - 35 minutes - Subjective Interval history: Examined this morning. Patient is awake and alert. Not in any distress. She is sitting up in bed. She now requires BiPAP due to persistent hypoxia. Patient had a fever last night. Currently hemodynamically stable. She denies chest pain or shortness of breath. She does have chills and tremors. Echocardiogram reveals LVEF 65% with normal LV size and function, normal RV size and function. CTA chest is negative for PE, mild patchy opacities and a small noncalcified pulmonary nodule seen. She is currently on DuoNeb breathing treatment and also on Zosyn and Vancomycin. - Constitutional Vitals: Temp Pulse Resp BP Pulse Ox 98.1 F 100 20 127/52 85 03/27/17 12:40 03/27/17 12:00 03/27/17 12:00 03/27/17 12:00 03/27/17 12:00 General appearance: Present: cooperative, A&O X 3, pleasant, no acute distress, answers questions appropriately Exam: Chronically ill-appearing, on BiPAP at this time - Head Head exam: Present: atraumatic - Eye Eye exam: Present: EOMI - ENT ENT exam: Present: mucous membranes dry - Respiratory Respiratory exam: Present: CTAB, tachypnea. Absent: accessory muscle use, chest wall tenderness, rales, rhonchi, wheezes - Cardiovascular Cardiovascular exam: Present: RRR, +S1, +S2 - GI/Abdominal GI/Abdominal exam: Present: soft. Absent: distended, firm, guarding, tenderness - Extremities Exam Extremities exam: Present: radial pulses palpable and symmetrical. Absent: calf tenderness, cyanotic, pedal edema - Neurological Exam Neurological exam: Present: alert, oriented X3, no focal deficits. Absent: facial droop, speech deficit Internal Medicine: Result - Labs CBC & Chem 7: 03/27/17 01:15 03/27/17 01:15 Labs: Short CBC 03/26/17 03/27/17 Range/Units 18:09 01:15 WBC 10.7 (4.3-11.1) K/mcL Hgb 10.9 L 10.7 L (11.5-15.4) g/dL Hct 34.6 L 33.2 L (35.3-44.9) % Plt Count 144 (140-400) K/mcL Neutrophils # 8.4 (1.6-8.9) K/mcL BMP 03/26/17 03/26/17 03/27/17 14:13 18:09 01:15 Sodium 141 140 139 Potassium 4.4 3.8 3.8 Chloride 112 H 108 108 Carbon Dioxide 18 L 21 21 BUN 14 14 13 Creatinine 0.94 1.05 0.97 Glucose 163 H 142 H 150 H Calcium 8.9 8.3 L 8.3 L Cardiac Enzymes 03/26/17 03/27/17 Range/Units 18:05 01:15 Troponin I 0.01 0.01 (0-0.03) ng/mL Liver Function 03/26/17 Range/Units 18:09 Total Bilirubin 0.5 (0.2-1.2) mg/dL AST 85 H (5-34) Units/L ALT 56 H (0-55) Units/L Alkaline Phosphatase 64 (38-126) Units/L Albumin 2.8 L (3.5-5.0) g/dL - ABG Interpretation ABG results: ABG ABG pH 7.42 pH Units (7.32-7.45) 03/26/17 16:39 ABG pCO2 33 mmHg (35-45) L 03/26/17 16:39 ABG pO2 57 mmHg (85-104) L 03/26/17 16:39 ABG O2 Saturation 90 % (95-98) L 03/26/17 16:39 PT/INR, D-dimer PT 12.5 Seconds (9.4-12.1) H 03/26/17 18:09 - Impressions Impressions Echocardiogram 03/26/17 16:56 Impressions: LVEF 65%. Normal LV chamber size, wall thickness and function. Mild left ventricular diastolic dysfunction. Normal right ventricular structure and function. Small mobile echodensity noted in some views of the left atrium. This could represent the previously described aneurysmal interatrial septum. No significant valvular dysfunction. No evidence of pulmonary hypertension. Left Ventricular Wall Motion: Rest Echo Findings All wall segments showed normal motion. Findings: Study Quality * Technically adequate exam. ECG Findings * Normal sinus rhythm. Left Ventricle * LVEF 65%. * Normal LV chamber size, wall thickness and function. * Mild left ventricular diastolic dysfunction. Right Ventricle * Normal right ventricular structure and function. Left Atrium * Mildly dilated left atrium. * Small mobile echodensity noted in some views of the left atrium. This could represent the previously described aneurysmal interatrial septum. Right Atrium * Normal right atrial size. Interatrial Septum * Interatrial septum not well evaluated. Aortic Valve * Trileaflet aortic valve. * Focal areas of calcification noted on the aortic valve. * No aortic regurgitation. * No aortic stenosis. Mitral Valve * Mild mitral annular calcification. * No mitral regurgitation. * No mitral stenosis. Tricuspid Valve * Normal tricuspid valve structure and function. * Trace tricuspid regurgitation. * No evidence of pulmonary hypertension. Pulmonic Valve * Pulmonic valve is not well visualized. * No pulmonic regurgitation. Pericardium * The pericardium appears normal. IVC * The IVC is not well evaluated. Pulmonary Artery * Normal visualized portions of the main pulmonary artery. Chest CTA 03/26/17 17:32 IMPRESSION: No evidence of pulmonary embolism on slightly limited exam due to motion in the lingula. . Mild patchy opacities are seen within the periphery of the right apex which may be related to asymmetric scarring versus infectious or inflammatory process. Small indeterminate 3 mm noncalcified pulmonary nodule. Follow-up recommended based on risk factors. Fleischner Society guidelines for follow-up and management of incidentally detected pulmonary nodules: Single Solid Nodule: Nodule size less than 6 mm In a low-risk patient, no routine follow-up. In a high-risk patient, optional CT at 12 months. Nodule size greater than 8 mm In a low-risk patient, consider CT, PET/CT, or tissue sampling at 3 months. In a high-risk patient, consider CT, PET/CT, or tissue sampling at 3 months. - Low risk patients include individuals with minimal or absent history of smoking and other known risk factors. - High risk patients include individuals with a history or smoking or known risk factors. Radiology 2017 http://pubs.rsna.org/doi/full/10.1148/radiol.0176810376 D/ / Cyndi Chaidez MD / Cyndi Chaidez MD Interpreting Provider: Cyndi Chaidez MD - VTE Documentation of Mechanical Device: Venous foot pump, device Consult Discharge Plan - Plan Referrals: Rodríguez Sousa DO [Primary Care Provider] -
[2017-03-27 13:46] LABS: ABG Base Excess -4 mEq/L (-2 to 3); ABG HCO3 20 mEq/L (21-27); ABG Oxygen Saturation 99 % (95-98); ABG PCO2 35 mmHg (35-45); ABG PH 7.37 pH Units (7.32-7.45); ABG PO2 116 mmHg (85-104); ABG TCO2 21 mEq/L (20-26)
--- NOTE | 2017-03-27 16:28 | Event Note ---
Date of Encounter: 03/27/17 Time of Encounter: 16:27 Patient seen in ICU, currently on Bipap due to episodic hypoxia, origin unknown. I spoke with daughter this AM and her at bedside. IV Zosyn and Vancomycin started 03/27 - no obvious infection to hip noted. Per [employer] recommendations: May need pulmonology consult if patient continues to have persistent hypoxia Cardiac monitoring, continuous pulse ox, labs in a.m., monitor closely
[2017-03-27] MEDS: *HR* Warfarin 5 MG TABLET PO SCH (16:34)
[2017-03-27] MEDS: Vancomycin 1,500 MG in D5% in Water 250 ML IVPB SCH (16:46)
[2017-03-27] MEDS: Ringers Solution, Lactated 1,000 ML IVC SCH (20:05)
[2017-03-27] MEDS: traZODone 50 MG TABLET PO SCH (20:48)
[2017-03-28] MEDS: Acetaminophen 325 MG TABLET PO PRN ×2 (00:09→18:46)
[2017-03-28] MEDS: 0.9 % Sodium Chloride 500 ML IVC SCH ×3 (03:00→08:00)
[2017-03-28] MEDS: Ipratropium/Albuterol Neb 3 ML IH SCH ×4 (03:17→22:05)
[2017-03-28 04:47] LABS: Basophils % 0.4 %; Eosinophils % 0.2 %; Hematocrit 28.3 % (35.3-44.9); Immature Granulocytes % 0.5 % (0-4); Lymphocytes # 1.6 K/mcL (0.6-4.6); Lymphocytes % 14.9 %; Mean Corpuscular HGB Conc 31.1 g/dL (31.6-35.5); Mean Corpuscular Hemoglobin 30.4 pg (28.0-33.3); Mean Corpuscular Volume 97.9 fL (83.0-100.0); Mean Platelet Volume 11.9 fL (9.4-12.4); Monocytes # 1.5 K/mcL (0.0-1.3); Monocytes % 13.7 %; Neutrophils # 7.5 K/mcL (1.6-8.9); Platelet Count 137 K/mcL (140-400); Red Blood Count 2.89 M/mcL (3.82-4.97); Red Cell Distribution Width 13.9 % (11.5-14.5); Segmented Neutrophils % 70.3 %
[2017-03-28 04:51] LABS: Hemoglobin 8.8 g/dL (11.5-15.4); INR 1.4; Prothrombin Time 14.8 Seconds (9.4-12.1)
[2017-03-28 04:57] LABS: Calcium 7.8 mg/dL (8.6-10.8); Potassium 3.9 mEq/L (3.5-4.5)
[2017-03-28] MEDS: Piperacillin/Tazobactam 3.375 GM in D5% in Water 50 ML IVPB SCH ×3 (06:06→23:27)
[2017-03-28] MEDS: *HR* Enoxaparin 30 MG/0.3 ML SYRINGE SQ SCH ×2 (06:06→17:38)
--- NOTE | 2017-03-28 07:57 | Orthopedics Progress Note ---
Date of Encounter: 03/28/17 Time of Encounter: 07:57 - Assessment and Plan (1) Breast cancer, left Current Visit: No Status: Chronic Qualifiers: Breast location: unspecified site of breast Estrogen receptor status: unspecified Patient sex: female Qualified Code(s): C50.912 - Malignant neoplasm of unspecified site of left female breast (2) TIA (transient ischemic attack) Current Visit: No Status: Chronic Qualifiers: Transient cerebral ischemia type: other Qualified Code(s): G45.8 - Other transient cerebral ischemic attacks and related syndromes (3) HLD (hyperlipidemia) Current Visit: Yes Status: Chronic Qualifiers: Hyperlipidemia type: pure hypercholesterolemia Qualified Code(s): E78.00 - Pure hypercholesterolemia, unspecified; E78.0 - Pure hypercholesterolemia (4) Depression Current Visit: No Status: Acute Qualifiers: Depression Type: major depressive disorder Major depression recurrence: single episode Active/Remission status: in full remission Qualified Code(s) : F32.5 - Major depressive disorder, single episode, in full remission (5) HTN (hypertension) Current Visit: Yes Status: Chronic Qualifiers: Hypertension type: essential hypertension Qualified Code(s): I10 - Essential (primary) hypertension (6) Acute CVA (cerebrovascular accident) Current Visit: No Status: Suspected (7) Patent foramen ovale with atrial septal aneurysm Current Visit: Yes Status: Chronic (8) Arthritis of left hip Current Visit: No Status: Chronic (9) Status post total hip replacement, left Current Visit: No Status: Acute (10) Obesity Current Visit: No Status: Chronic Qualifiers: Obesity type: due to excess calories Obesity classification: adult class 1 (BMI 30 - 34.9) Serious obesity comorbidity presence: unspecified whether serious comorbidity present Body mass index: BMI 32.0-32.9 Qualified Code(s) : E66.09 - Other obesity due to excess calories; Z68.32 - Body mass index (BMI) 32.0-32.9, adult; Z68.32 - Body mass index (BMI) 32.0-32.9, adult (11) Anticoagulated Current Visit: No Status: Chronic (12) Acute blood loss anemia Current Visit: Yes Status: Acute (13) Acute respiratory failure with hypoxia Current Visit: Yes Status: Acute Subjective Interval history: Patient was seen this morning in the ICU doing better nurse reports a good night Afebrile vital signs stable. Operative extremity: Neurovascularly intact Dressing clean dry and intact Calves nontender Assessment and plan: Continue with postoperative care Hematocrit 28 will transfuse 1 unit recommend transfer to orthopedic floor stable. Objective Vital signs: Vital Signs Temp Pulse Resp BP Pulse Ox 03/28/17 07:30 99.1 F 03/28/17 06:00 79 15 117/75 99 03/28/17 04:00 83 20 113/70 97 03/28/17 03:17 18 94 03/28/17 03:01 98.5 F 03/28/17 02:00 99 18 88/54 88 03/28/17 00:00 101 F H 106 14 121/59 90 03/27/17 23:08 101 F H 03/27/17 22:14 20 98 03/27/17 22:00 110 12 122/69 96 03/27/17 20:00 99.7 F H 110 24 116/86 93 03/27/17 18:50 99.7 F H 03/27/17 17:54 122 20 121/70 03/27/17 16:43 100.0 F H 03/27/17 16:40 16 98 03/27/17 15:57 113 03/27/17 14:00 109 20 97 03/27/17 13:10 18 95 03/27/17 12:40 98.1 F 03/27/17 12:00 100 20 127/52 85 03/27/17 11:40 96 03/27/17 11:30 20 90 03/27/17 10:00 92 20 105/61 93 03/27/17 08:28 98.2 F 03/27/17 08:00 96 16 101/51 94 Intake and Output 03/27/17 03/27/17 03/28/17 15:59 23:59 07:59 Intake Total 790 / 790 1300 / 1300 550 / 550 Output Total 225 / 225 250 / 250 350 / 350 Balance 565 / 565 1050 / 1050 200 / 200 Intake: IV Fluids 550 / 550 1300 / 1300 550 / 550 0.9 % Sodium Chloride 500 ML @ 500 / 500 1000 / 1000 500 / 500 100 mls/hr IVC .[facility] Rx#: [id number] Zosyn 3.375 GM In Dextrose 5% ( 50 / 50 50 / 50 50 / 50 ADD-[place]) 50 ML @ 12.5 mls/ hr IVPB Q8H [facility] Rx#:[id number] Vancocin 1,500 MG In Dextrose 5 250 / 250 % 250 ML @ 166.667 mls/hr IVPB Q24[facility] Rx#:[id number] Oral 240 / 240 Output: Catheter 225 / 225 250 / 250 350 / 350 Other: Meal Lunch Percent of Meal Consumed 10% Weight 102.3 kg Patient Weight 03/28/17 23:59 Weight 102.3 kg - Labs CBC & BMP: 03/28/17 04:18 03/28/17 04:18 Labs: Abnormal lab results RBC 2.89 M/mcL (3.82-4.97) L 03/28/17 04:18 Hgb 8.8 g/dL (11.5-15.4) L D 03/28/17 04:18 Hct 28.3 % (35.3-44.9) L 03/28/17 04:18 MCHC 31.1 g/dL (31.6-35.5) L 03/28/17 04:18 Plt Count 137 K/mcL (140-400) L 03/28/17 04:18 Monocytes # 1.5 K/mcL (0.0-1.3) H 03/28/17 04:18 Nucleated RBCs/100 WBC 0.2 /100 WBC (0) H 03/26/17 18:09 PT 14.8 Seconds (9.4-12.1) H 03/28/17 04:18 APTT 16.6 Seconds (26.0-36.0) L 03/26/17 18:09 ABG pO2 116 mmHg (85-104) H 03/27/17 13:42 ABG HCO3 20 mEq/L (21-27) L 03/27/17 13:42 ABG O2 Saturation 99 % (95-98) H 03/27/17 13:42 ABG Base Excess -4 mEq/L (-2 to 3) L 03/27/17 13:42 Chloride 110 mEq/L (98-109) H 03/28/17 04:18 Creatinine 1.23 mg/dL (0.57-1.11) H 03/28/17 04:18 Est GFR ( Amer) 52 (> 60) L 03/28/17 04:18 Est GFR (Non-Af Amer) 43 (> 60) L 03/28/17 04:18 Glucose 143 mg/dL (70-99) H 03/28/17 04:18 POC Glucose 143 (58-89) H 03/26/17 18:06 Lactic Acid 2.7 mmol/L (0.5-2.2) H 03/26/17 18:09 Calcium 7.8 mg/dL (8.6-10.8) L 03/28/17 04:18 AST 85 Units/L (5-34) H 03/26/17 18:09 ALT 56 Units/L (0-55) H 03/26/17 18:09 Creatine Kinase 483 Units/L (29-168) H 03/27/17 01:15 Serum Total Protein 5.8 g/dL (6.0-8.3) L 03/26/17 18:09 Albumin 2.8 g/dL (3.5-5.0) L 03/26/17 18:09 Albumin/Globulin Ratio 0.9 (1.1-2.2) L 03/26/17 18:09 - VTE Documentation of Mechanical Device: Intermittent pneumatic compression device Consult Discharge Plan - Plan Referrals: Rodríguez Sousa DO [Primary Care Provider] -
[2017-03-28] MEDS ORDERED: Warfarin perPT PO PRN (08:01)
[2017-03-28] MEDS: Ascorbic Acid 500 MG TABLET PO SCH ×2 (09:07→17:38)
[2017-03-28] MEDS: Multivit/Ca/Min/Fe/FA 1 TAB TABLET PO SCH (09:07)
[2017-03-28] MEDS ORDERED: Aminoglycoside Consult 1 EACH MC ONE (10:17)
[2017-03-28] MEDS: *HR* HYDROmorphone (PF) 1 MG/ML SYRINGE IVP PRN ×2 (10:34→16:46)
--- NOTE | 2017-03-28 12:15 | Internal Med Progress Note ---
Date of Encounter: 03/28/17 Time of Encounter: 09:00 - Assessment and plan (1) Acute respiratory failure with hypoxia Current Visit: Yes Status: Acute Assessment and plan: Acute hypoxic respiratory failure - unclear etiology - patient currently on O2 via nasal cannula, BiPAP has been discontinued Continue DuoNeb breathing treatment, empiric IV Zosyn, IV Vancomycin CTA chest - negative for PE, mild patchy opacities in the right apex, small noncalcified pulmonary nodule EKG - no acute ST-T changes Troponin - 0.01 Echocardiogram - LVEF 65%, mild LV diastolic dysfunction, normal RV, aneurysmal interatrial septum ABG - reviewed Initial suspicion of PE or fat embolism has been ruled out, unlikely to be CHF May need pulmonology consult if patient continues to have persistent hypoxia Cardiac monitoring, continuous pulse ox, labs in a.m., monitor closely 03/28 - patient's O2 sat is 98% on O2 via nasal cannula, doing well without BiPAP , denies chest pain or shortness of breath, states she feels better (2) Status post total hip replacement, left Current Visit: No Status: Acute Assessment and plan: 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 Silverman 03/28 - continue PT/OT, transfuse 1 unit PRBC, stable from orthopedic standpoint (3) HLD (hyperlipidemia) Current Visit: Yes Status: Chronic Assessment and plan: Continue Lovastatin Qualifiers: Hyperlipidemia type: pure hypercholesterolemia Qualified Code(s): E78.00 - Pure hypercholesterolemia, unspecified; E78.0 - Pure hypercholesterolemia (4) HTN (hypertension) Current Visit: Yes Status: Chronic Assessment and plan: Essential hypertension, controlled, monitor Continue home dose of Tenormin Qualifiers: Hypertension type: essential hypertension Qualified Code(s): I10 - Essential (primary) hypertension (5) History of left breast cancer Current Visit: No Status: Chronic Assessment and plan: 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 Patient is currently on Letrozole Follows up regularly with oncology (6) H/O: CVA (cerebrovascular accident) Current Visit: Yes Status: Chronic Assessment and plan: History of bihemispheric cerebral lacunar infarcts within the right precentral gyrus and left parietotemporal lobe No obvious residual hemiparesis Patient is on Lovastatin and Coumadin at home Patient does have a history of PFO and that is why she is on anticoagulation with Coumadin (7) Patent foramen ovale with atrial septal aneurysm Current Visit: Yes Status: Chronic Assessment and plan: PFO with atrial septal aneurysm - seen is a small mobile echodensity in the [place] Continue Coumadin for anticoagulation (8) DVT prophylaxis Current Visit: Yes Status: Acute Assessment and plan: Continue Coumadin for anticoagulation - Time Spent With Patient 25 - 35 minutes - Subjective Interval history: Examined this morning. Patient is awake and alert. Not in any distress. She is sitting up in bed. She is now on O2 via nasal cannula. Patient had a fever last night. Currently hemodynamically stable. She denies chest pain or shortness of breath. No other acute events or complaints. Echocardiogram reveals LVEF 65% with normal LV size and function, normal RV size and function. CTA chest is negative for PE, mild patchy opacities and a small noncalcified pulmonary nodule seen. She is currently on DuoNeb breathing treatment and also on Zosyn and Vancomycin. - Constitutional Vitals: Temp Pulse Resp BP Pulse Ox 99.0 F 89 20 132/78 100 03/28/17 11:40 03/28/17 10:00 03/28/17 10:59 03/28/17 10:00 03/28/17 10:59 General appearance: Present: cooperative, A&O X 3, pleasant, no acute distress, answers questions appropriately Exam: Chronically ill-appearing, generalized weakness - Head Head exam: Present: atraumatic - Eye Eye exam: Present: EOMI - ENT ENT exam: Present: mucous membranes moist - Respiratory Respiratory exam: Present: CTAB. Absent: accessory muscle use, chest wall tenderness, rales, rhonchi, wheezes, tachypnea - Cardiovascular Cardiovascular exam: Present: RRR, +S1, +S2 - GI/Abdominal GI/Abdominal exam: Present: soft. Absent: distended, firm, guarding, tenderness - Extremities Exam Extremities exam: Present: radial pulses palpable and symmetrical. Absent: calf tenderness, cyanotic, pedal edema - Neurological Exam Neurological exam: Present: alert, oriented X3. Absent: no focal deficits, facial droop, speech deficit Internal Medicine: Result - Labs CBC & Chem 7: 03/28/17 04:18 03/28/17 04:18 Labs: Short CBC 03/28/17 Range/Units 04:18 WBC 10.6 (4.3-11.1) K/mcL Hgb 8.8 L D (11.5-15.4) g/dL Hct 28.3 L (35.3-44.9) % Plt Count 137 L (140-400) K/mcL Neutrophils # 7.5 (1.6-8.9) K/mcL BMP 03/28/17 04:18 Sodium 137 Potassium 3.9 Chloride 110 H Carbon Dioxide 21 BUN 18 Creatinine 1.23 H Glucose 143 H Calcium 7.8 L - ABG Interpretation ABG results: ABG ABG pH 7.37 pH Units (7.32-7.45) 03/27/17 13:42 ABG pCO2 35 mmHg (35-45) 03/27/17 13:42 ABG pO2 116 mmHg (85-104) H 03/27/17 13:42 ABG O2 Saturation 99 % (95-98) H 03/27/17 13:42 PT/INR, D-dimer PT 14.8 Seconds (9.4-12.1) H 03/28/17 04:18 - Impressions Impressions Chest X-Ray 03/28/17 11:17 IMPRESSION: No acute cardiopulmonary disease. D/ / Molina Glez MD / Molina Glez MD Interpreting Provider: Molina Glez MD - VTE Documentation of Mechanical Device: Intermittent pneumatic compression device Consult Discharge Plan - Plan Referrals: Rodríguez Sousa DO [Primary Care Provider] -
--- NOTE | 2017-03-28 13:27 | Pulmonology Consult Note ---
<Davy Plaza - Last Filed: 03/28/17 14:55> Date of Encounter: 03/28/17 Time of Encounter: 13:27 Assessment and Plan (1) Acute respiratory failure with hypoxia Current Visit: Yes Status: Acute Etiology unclear at this time, likely multifactorial in the setting of pain medication use, diastolic heart failure, possible underlying obstructive lung disease. Patient is also known to have a PFO however her hypoxemia is unlikely related to her intracardiac shunt physiology. We will recommend judicious use of pain medications. We will discontinue her IV fluids and give her a dose of furosemide. Continue supplemental oxygenation to keep her oxygen saturation above 88%. Patient will likely need evaluated for home oxygen at discharge. Recommend follow-up in the pulmonology clinic in 1 month for further evaluation of her hypoxemia including formal pulmonary function tests. (2) Status post total hip replacement, left Current Visit: No Status: Acute History of Present Illness Consult date: 03/28/17 Requesting physician: Jorje Zapata Reason for consult: hypoxemia Chief complaint: Left hip pain History of present illness: Patient is a 76-year-old female with history of CVA, breast cancer who was admitted after a left hip arthroplasty due to arthritis. While admitted the patient has been having episodes of hypoxia and requiring BiPAP and oxygen via nasal cannula. The patient has had no complaints. She denies any shortness of breath, cough, congestion. She has been using pain medication that makes her somewhat sleepy but controls her pain well. She denies any history of lung disease. 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 Her did work in a coal mine. She denies any exotic pets at home. She does report smoking from age 13 to approximately age 31, about 1 pack per day she estimates. Past Med Surg Social Fam HX - Past Medical History Medical history: cancer, GERD, hypertension Psychiatric history: depression - Past Surgical History Surgical History: breast surgery, hysterectomy, orthopedic, other - Social History Smoking Status: Former smoker Smokeless Tobacco Status: No Alcohol use: none Drug use: none - Family History Mother Living Status: Hx Family Cardiac Disorders: Yes (CABG) Medications and Allergies Atenolol [Tenormin] 50 mg PO DAILY 12/27/14 [History] Cyclobenzaprine [Flexeril] 10 mg PO TID PRN 12/27/14 [History] Lovastatin [Mevacor] 20 mg PO HS 12/27/14 [History] Omeprazole [Prilosec] 40 mg PO BID 12/27/14 [History] Letrozole 2.5 mg PO DAILY #90 tablet 12/29/14 [Rx] Diclofenac Sodium [Voltaren] 50 mg PO BID 06/09/16 [History] Trazodone HCl 200 mg PO HS 06/09/16 [History] Warfarin [Coumadin] 5 mg PO 1800 #30 tablet 06/11/16 [Rx] Enoxaparin [Lovenox] 40 mg SQ Q12HR #6 syr 03/25/17 [Rx] OxyCODONE Immed Rel [Roxicodone 5 MG] 5 mg PO Q6HR PRN #28 tablet 03/25/17 [Rx] Enoxaparin [Lovenox] 40 mg SQ HS 03/26/17 [History] Furosemide [Lasix] 20 mg PO DAILY PRN 03/26/17 [History] 3 Allergy/AdvReac Type Severity Reaction Status Date / Time No Known Allergies Allergy Verified 03/26/17 07:39 All Systems: A 10-system review of systems was performed and is negative for pertinent findings except as documented above in the HPI. - Constitutional Constitutional: no chills, no fever(s) - EENT Nose, mouth and throat: no sinus pain, no sinus pressure, no sore throat, no throat swelling - Cardiovascular Cardiovascular: no chest pain, no dyspnea, no dyspnea on exertion - Respiratory Respiratory: no cough, no dyspnea, no dyspnea on exertion, no chest congestion, no excessive phlegm production, no change in phlegm color - Gastrointestinal Gastrointestinal: no diarrhea, no nausea, no vomiting - Genitourinary Genitourinary: no urinary frequency, no urinary incontinence - Musculoskeletal Musculoskeletal: joint pain, limited range of motion - Neurological Neurological: no dizziness, no numbness, no syncope, no tingling Physical Examination Vital Signs: Vital Signs, Last 4 Hours Temp Pulse Resp BP Pulse Ox 03/28/17 11:40 99.0 F 03/28/17 10:59 20 100 03/28/17 10:00 89 20 132/78 100 General appearance: no acute distress ENT: oropharynx moist Effort: normal Auscultation: left: diminished breath sounds, right: clear Cardiovascular: other (Regular rate, tachycardia) Gastrointestinal: normoactive bowel sounds, soft, non-tender Extremities: no cyanosis, no edema, no clubbing normal mental status, non-focal exam Results - Laboratory Findings CBC and BMP: 03/28/17 04:18 03/28/17 04:18 ABG ABG pH 7.37 pH Units (7.32-7.45) 03/27/17 13:42 ABG pCO2 35 mmHg (35-45) 03/27/17 13:42 ABG pO2 116 mmHg (85-104) H 03/27/17 13:42 ABG O2 Saturation 99 % (95-98) H 03/27/17 13:42 PT/INR, D-dimer PT 14.8 Seconds (9.4-12.1) H 03/28/17 04:18 Abnormal lab findings: Abnormal lab results RBC 2.89 M/mcL (3.82-4.97) L 03/28/17 04:18 Hgb 8.8 g/dL (11.5-15.4) L D 03/28/17 04:18 Hct 28.3 % (35.3-44.9) L 03/28/17 04:18 MCHC 31.1 g/dL (31.6-35.5) L 03/28/17 04:18 Plt Count 137 K/mcL (140-400) L 03/28/17 04:18 Monocytes # 1.5 K/mcL (0.0-1.3) H 03/28/17 04:18 Nucleated RBCs/100 WBC 0.2 /100 WBC (0) H 03/26/17 18:09 PT 14.8 Seconds (9.4-12.1) H 03/28/17 04:18 APTT 16.6 Seconds (26.0-36.0) L 03/26/17 18:09 ABG pO2 116 mmHg (85-104) H 03/27/17 13:42 ABG HCO3 20 mEq/L (21-27) L 03/27/17 13:42 ABG O2 Saturation 99 % (95-98) H 03/27/17 13:42 ABG Base Excess -4 mEq/L (-2 to 3) L 03/27/17 13:42 Chloride 110 mEq/L (98-109) H 03/28/17 04:18 Creatinine 1.23 mg/dL (0.57-1.11) H 03/28/17 04:18 Est GFR ( Amer) 52 (> 60) L 03/28/17 04:18 Est GFR (Non-Af Amer) 43 (> 60) L 03/28/17 04:18 Glucose 143 mg/dL (70-99) H 03/28/17 04:18 POC Glucose 143 (58-89) H 03/26/17 18:06 Lactic Acid 2.7 mmol/L (0.5-2.2) H 03/26/17 18:09 Calcium 7.8 mg/dL (8.6-10.8) L 03/28/17 04:18 AST 85 Units/L (5-34) H 03/26/17 18:09 ALT 56 Units/L (0-55) H 03/26/17 18:09 Creatine Kinase 483 Units/L (29-168) H 03/27/17 01:15 Serum Total Protein 5.8 g/dL (6.0-8.3) L 03/26/17 18:09 Albumin 2.8 g/dL (3.5-5.0) L 03/26/17 18:09 Albumin/Globulin Ratio 0.9 (1.1-2.2) L 03/26/17 18:09 - Microbiology Findings Microbiology Findings: Microbiology, Last 48 Hours 03/27/17 01:11 Blood Culture - Preliminary Peripheral Venipuncture No growth. 03/27/17 01:05 Blood Culture - Preliminary Peripheral Venipuncture No growth. - Clinical Findings Intake & Output: Intake & Output 03/27/17 03/28/17 03/28/17 23:59 07:59 15:59 Intake Total 1300 / 1300 550 / 550 500 / 500 Output Total 250 / 250 350 / 350 300 / 300 Balance 1050 / 1050 200 / 200 200 / 200 Weight 102.3 kg Consult Discharge Plan - Plan Referrals: Rodríguez Sousa DO [Primary Care Provider] - <Nithin Doty - Last Filed: 03/28/17 15:41> Date of Encounter: 03/28/17 All Systems: A 10-system review of systems was performed and is negative for pertinent findings except as documented above in the HPI. Physical Examination Vital Signs: Vital Signs, Last 4 Hours Temp Pulse Resp BP Pulse Ox 03/28/17 11:40 99.0 F 03/28/17 10:59 20 100 03/28/17 10:00 89 20 132/78 100 Results - Laboratory Findings CBC and BMP: 03/28/17 04:18 03/28/17 04:18 ABG ABG pH 7.37 pH Units (7.32-7.45) 03/27/17 13:42 ABG pCO2 35 mmHg (35-45) 03/27/17 13:42 ABG pO2 116 mmHg (85-104) H 03/27/17 13:42 ABG O2 Saturation 99 % (95-98) H 03/27/17 13:42 PT/INR, D-dimer PT 14.8 Seconds (9.4-12.1) H 03/28/17 04:18 Abnormal lab findings: Abnormal lab results RBC 2.89 M/mcL (3.82-4.97) L 03/28/17 04:18 Hgb 8.8 g/dL (11.5-15.4) L D 03/28/17 04:18 Hct 28.3 % (35.3-44.9) L 03/28/17 04:18 MCHC 31.1 g/dL (31.6-35.5) L 03/28/17 04:18 Plt Count 137 K/mcL (140-400) L 03/28/17 04:18 Monocytes # 1.5 K/mcL (0.0-1.3) H 03/28/17 04:18 Nucleated RBCs/100 WBC 0.2 /100 WBC (0) H 03/26/17 18:09 PT 14.8 Seconds (9.4-12.1) H 03/28/17 04:18 APTT 16.6 Seconds (26.0-36.0) L 03/26/17 18:09 ABG pO2 116 mmHg (85-104) H 03/27/17 13:42 ABG HCO3 20 mEq/L (21-27) L 03/27/17 13:42 ABG O2 Saturation 99 % (95-98) H 03/27/17 13:42 ABG Base Excess -4 mEq/L (-2 to 3) L 03/27/17 13:42 Chloride 110 mEq/L (98-109) H 03/28/17 04:18 Creatinine 1.23 mg/dL (0.57-1.11) H 03/28/17 04:18 Est GFR ( Amer) 52 (> 60) L 03/28/17 04:18 Est GFR (Non-Af Amer) 43 (> 60) L 03/28/17 04:18 Glucose 143 mg/dL (70-99) H 03/28/17 04:18 POC Glucose 143 (58-89) H 03/26/17 18:06 Lactic Acid 2.7 mmol/L (0.5-2.2) H 03/26/17 18:09 Calcium 7.8 mg/dL (8.6-10.8) L 03/28/17 04:18 AST 85 Units/L (5-34) H 03/26/17 18:09 ALT 56 Units/L (0-55) H 03/26/17 18:09 Creatine Kinase 483 Units/L (29-168) H 03/27/17 01:15 Serum Total Protein 5.8 g/dL (6.0-8.3) L 03/26/17 18:09 Albumin 2.8 g/dL (3.5-5.0) L 03/26/17 18:09 Albumin/Globulin Ratio 0.9 (1.1-2.2) L 03/26/17 18:09 - Microbiology Findings Microbiology Findings: Microbiology, Last 48 Hours 03/27/17 01:11 Blood Culture - Preliminary Peripheral Venipuncture No growth. 03/27/17 01:05 Blood Culture - Preliminary Peripheral Venipuncture No growth. - Clinical Findings Intake & Output: Intake & Output 03/27/17 03/28/17 03/28/17 23:59 07:59 15:59 Intake Total 1300 / 1300 550 / 550 500 / 500 Output Total 250 / 250 350 / 350 300 / 300 Balance 1050 / 1050 200 / 200 200 / 200 Weight 102.3 kg - Attending Attestation I examined this patient and my medical decision-making was reviewed with the Resident Physician. I agree with the documented findings, disposition and treatment plan as described except to the extent set forth below. We independently had razm-[id number] contact with the patient 76yo F with History of Breast CA and CVA admitted POD #2 s/p Left Hip Arthroplasty complicated by Hypoxemia Remote Smoking History No Significant Occupational Exposures. Denies complaints. Exam: Sao2 93-94% on 6LHFLN Dimished BS with Rales b/l in Lung Bases Tachy no Murmur No LE edema Labs: AB.37/35/116 Imaging; CTA: No Filling Defect. Empphysema. Atelectasis ECHO: Diastolic Dysfunction. + PFO A/P: Acute Hypoxic Respiratory failure. This is a combination of factors including volume overload in the context of heart failure with preserved ejection fraction , postoperative atelectasis, possible undiagnosed emphysema and possible contribution from patent raymond ovale (although patient does not exhibit classic shunt physiology) -Stop IV fluids recommend diuresis goal -500 mL to 1 L over the next 24 hours monitor urine output and kidney function twice daily replace electrolytes per medicine service -Wean FiO2 to keep saturation around 92-94% she will need to be evaluated for long-term oxygen therapy at the time of discharge -Outpatient pulmonary follow-up including PFTs and possible high-resolution CT scan -Consider formal cardiology consult for patent foramen ovale given prior history of CVA and chronic warfarin therapy -DVT prophylaxis per Ortho protocol
[2017-03-28] MEDS ORDERED: 0.9 % Sodium Chloride 250 ML ONE (14:01)
[2017-03-28] MEDS ORDERED: Furosemide 20 MG/2 ML VIAL IVP ONE (15:03)
[2017-03-28] MEDS: Vancomycin 1,500 MG in D5% in Water 250 ML IVPB SCH (17:56)
[2017-03-28] MEDS ORDERED: *HR* Warfarin 7.5 MG TABLET PO SCH (18:00)
--- NOTE | 2017-03-28 19:04 | Electrocardiograph Report ---
[address] [address] Test Date: 2017-03-27 Pat Name: Mary Steward Department: 109 Room: [facility] Gender: F Pipe Insulator: : 1940 Requested By: Jorje Zapata Order Number: [id number] Reading MD: Nahun Sebastian MD Measurements Intervals Harvey Rate: 108 P: 2 MS: 164 QRS: -30 QRSD: 90 T: 57 QT: 353 QTc: 416 Interpretive Statements SINUS TACHYCARDIA BORDERLINE LEFT AXIS DEVIATION VOLTAGE CRITERIA FOR LVH Electronically Signed On 03-28-2017 19:03:04 EST by Nahun Sebastian MD
[2017-03-28] MEDS: traZODone 50 MG TABLET PO SCH (20:15)
[2017-03-29] MEDS: Ipratropium/Albuterol Neb 3 ML IH SCH ×4 (03:56→22:07)
[2017-03-29 04:40] LABS: Basophils % 0.2 %; Eosinophils # 0.1 K/mcL (0.0-0.6); Eosinophils % 0.9 %; Hematocrit 29.6 % (35.3-44.9); Hemoglobin 9.6 g/dL (11.5-15.4); Immature Granulocytes % 0.7 % (0-4); Lymphocytes # 1.3 K/mcL (0.6-4.6); Lymphocytes % 12.5 %; Mean Corpuscular HGB Conc 32.4 g/dL (31.6-35.5); Mean Corpuscular Hemoglobin 30.6 pg (28.0-33.3); Mean Corpuscular Volume 94.3 fL (83.0-100.0); Mean Platelet Volume 11.6 fL (9.4-12.4); Monocytes # 1.4 K/mcL (0.0-1.3); Monocytes % 12.9 %; Neutrophils # 7.6 K/mcL (1.6-8.9); Platelet Count 144 K/mcL (140-400); Red Blood Count 3.14 M/mcL (3.82-4.97); Segmented Neutrophils % 72.8 %
[2017-03-29 04:44] LABS: ABG Base Excess -2 mEq/L (-2 to 3); ABG HCO3 22 mEq/L (21-27); ABG Oxygen Saturation 92 % (95-98); ABG PCO2 36 mmHg (35-45); ABG PH 7.41 pH Units (7.32-7.45); ABG PO2 62 mmHg (85-104); ABG TCO2 23 mEq/L (20-26)
[2017-03-29 04:45] LABS: INR 1.7; Prothrombin Time 18.9 Seconds (9.4-12.1)
[2017-03-29 04:58] LABS: Calcium 8.2 mg/dL (8.6-10.8); Potassium 3.9 mEq/L (3.5-4.5)
[2017-03-29] MEDS: *HR* Enoxaparin 30 MG/0.3 ML SYRINGE SQ SCH (06:11)
[2017-03-29] MEDS ORDERED: *HR* Morphine 2 MG/ML SYRINGE IVP PRN (07:43)
[2017-03-29] MEDS: Multivit/Ca/Min/Fe/FA 1 TAB TABLET PO SCH (08:02)
[2017-03-29] MEDS: Piperacillin/Tazobactam 3.375 GM in D5% in Water 50 ML IVPB SCH ×4 (08:02→22:12)
[2017-03-29] MEDS: Ascorbic Acid 500 MG TABLET PO SCH ×2 (08:03→16:52)
--- NOTE | 2017-03-29 08:41 | Orthopedics Progress Note ---
Date of Encounter: 03/29/17 Time of Encounter: 08:40 - Assessment and Plan (1) Breast cancer, left Current Visit: No Status: Chronic Qualifiers: Qualified Code(s): C50.912 - Malignant neoplasm of unspecified site of left female breast (2) TIA (transient ischemic attack) Current Visit: No Status: Chronic Qualifiers: Qualified Code(s): G45.8 - Other transient cerebral ischemic attacks and related syndromes (3) HLD (hyperlipidemia) Current Visit: Yes Status: Chronic Qualifiers: Qualified Code(s): E78.00 - Pure hypercholesterolemia, unspecified; E78.0 - Pure hypercholesterolemia (4) Depression Current Visit: No Status: Acute Qualifiers: Qualified Code(s): F32.5 - Major depressive disorder, single episode, in full remission (5) HTN (hypertension) Current Visit: Yes Status: Chronic Qualifiers: Qualified Code(s): I10 - Essential (primary) hypertension (6) Acute CVA (cerebrovascular accident) Current Visit: No Status: Suspected (7) Patent foramen ovale with atrial septal aneurysm Current Visit: Yes Status: Chronic (8) Arthritis of left hip Current Visit: No Status: Chronic (9) Status post total hip replacement, left Current Visit: No Status: Acute (10) Obesity Current Visit: No Status: Chronic Qualifiers: Qualified Code(s): E66.09 - Other obesity due to excess calories; Z68.32 - Body mass index (BMI) 32.0-32.9, adult; Z68.32 - Body mass index (BMI) 32.0-32.9 , adult (11) Anticoagulated Current Visit: No Status: Chronic (12) Acute blood loss anemia Current Visit: Yes Status: Acute (13) Acute respiratory failure with hypoxia Current Visit: Yes Status: Acute Subjective Interval history: Patient was seen this morning in the ICU doing better Afebrile vital signs stable. Operative extremity: Neurovascularly intact Dressing clean dry and intact Calves nontender Assessment and plan: Continue with postoperative care Hematocrit 29 recommend transferred to orthopedic floor Objective Vital signs: Vital Signs Temp Pulse Resp BP Pulse Ox 03/29/17 08:11 98.0 F 98 16 145/89 100 03/29/17 07:54 98.0 F 03/29/17 03:57 14 92 03/29/17 03:45 98.2 F 120 18 125/94 96 03/29/17 02:57 98.2 F 03/28/17 23:30 98.4 F 122 18 130/97 91 03/28/17 22:06 14 95 03/28/17 20:00 112 16 108/74 95 03/28/17 19:00 99.4 F 03/28/17 18:09 120 16 116/79 93 03/28/17 17:00 100.4 F H 120 16 116/79 93 03/28/17 15:49 16 88 03/28/17 15:38 99.8 F H 03/28/17 14:54 115 16 129/81 88 03/28/17 14:39 99.8 F H 116 16 110/81 88 03/28/17 14:00 115 16 110/81 88 03/28/17 12:00 99.0 F 104 20 106/79 95 03/28/17 11:40 99.0 F 03/28/17 10:59 20 100 03/28/17 10:00 89 20 132/78 100 Intake and Output 03/28/17 03/29/17 03/29/17 23:59 07:59 15:59 Intake Total 600 / 600 50 / 50 Output Total 750 / 750 370 / 370 Balance -150 / -150 -320 / -320 Intake: IV Fluids 300 / 300 50 / 50 Zosyn 3.375 GM In Dextrose 5% ( 50 / 50 50 / 50 ADD-Fraziers Bottom) 50 ML @ 12.5 mls/ hr IVPB Q8H [facility] Rx#:[id number] Vancocin 1,500 MG In Dextrose 5 250 / 250 % 250 ML @ 166.667 mls/hr IVPB Q24H [facility] Rx#:[id number] Oral 0 / 0 Blood Product 300 / 300 Rbcs Leuko Poor As-1 Unit 300 / 300 [id number] Output: Urine 0 / 0 Catheter 750 / 750 370 / 370 Other: Weight 102 kg - Labs CBC & BMP: 03/29/17 04:19 03/29/17 04:19 Labs: Abnormal lab results RBC 3.14 M/mcL (3.82-4.97) L 03/29/17 04:19 Hgb 9.6 g/dL (11.5-15.4) L 03/29/17 04:19 Hct 29.6 % (35.3-44.9) L 03/29/17 04:19 RDW 15.0 % (11.5-14.5) H 03/29/17 04:19 Monocytes # 1.4 K/mcL (0.0-1.3) H 03/29/17 04:19 Nucleated RBCs/100 WBC 0.2 /100 WBC (0) H 03/26/17 18:09 PT 18.9 Seconds (9.4-12.1) H 03/29/17 04:19 APTT 16.6 Seconds (26.0-36.0) L 03/26/17 18:09 ABG pO2 62 mmHg (85-104) L 03/29/17 04:42 ABG O2 Saturation 92 % (95-98) L 03/29/17 04:42 Creatinine 1.55 mg/dL (0.57-1.11) H 03/29/17 04:19 Est GFR ( Amer) 40 (> 60) L 03/29/17 04:19 Est GFR (Non-Af Amer) 33 (> 60) L 03/29/17 04:19 Glucose 157 mg/dL (70-99) H 03/29/17 04:19 POC Glucose 143 (58-89) H 03/26/17 18:06 Lactic Acid 2.7 mmol/L (0.5-2.2) H 03/26/17 18:09 Calcium 8.2 mg/dL (8.6-10.8) L 03/29/17 04:19 AST 85 Units/L (5-34) H 03/26/17 18:09 ALT 56 Units/L (0-55) H 03/26/17 18:09 Creatine Kinase 483 Units/L (29-168) H 03/27/17 01:15 Serum Total Protein 5.8 g/dL (6.0-8.3) L 03/26/17 18:09 Albumin 2.8 g/dL (3.5-5.0) L 03/26/17 18:09 Albumin/Globulin Ratio 0.9 (1.1-2.2) L 03/26/17 18:09 - VTE Documentation of Mechanical Device: Intermittent pneumatic compression device Consult Discharge Plan - Plan Referrals: Rodríguez Sousa DO [Primary Care Provider] -
--- NOTE | 2017-03-29 08:42 | Pulmonology Progress Note ---
<Davy Plaza - Last Filed: 03/29/17 08:38> Date of Encounter: 03/29/17 Time of Encounter: 08:38 Assessment and Plan (1) Acute respiratory failure with hypoxia Current Visit: Yes Status: Acute Patient's oxygen requirements have slightly decreased however she is still requiring 7 L of oxygen supplementation to maintain her saturations in the low 90s. Patient had a slight elevation in her creatinine so we will hold off on further diuresis at this time. Recommend home O2 qualification at discharge. Recommend follow-up with pulmonology as an outpatient in 4-6 weeks. (2) Status post total hip replacement, left Current Visit: No Status: Acute Subjective Principal diagnosis: Left hip pain Interval history: Patient seen and examined at bedside. She has no complaints at this time. She denies chest pain, shortness of breath or cough, congestion. Objective PUL Vital signs: Last Vital Signs Temp 98.0 F 03/29/17 08:11 Pulse 98 03/29/17 08:11 Resp 16 03/29/17 08:11 BP 145/89 03/29/17 08:11 Pulse Ox 100 03/29/17 08:11 General appearance: no acute distress ENT: oropharynx moist Effort: normal Auscultation: bilateral: clear Cardiovascular: regular rate and rhythm Gastrointestinal: normoactive bowel sounds, soft, non-tender Extremities: no cyanosis, no edema, no clubbing normal mental status, non-focal exam Results - Laboratory Findings CBC and BMP: 03/29/17 04:19 03/29/17 04:19 ABG ABG pH 7.41 pH Units (7.32-7.45) 03/29/17 04:42 ABG pCO2 36 mmHg (35-45) 03/29/17 04:42 ABG pO2 62 mmHg (85-104) L 03/29/17 04:42 ABG O2 Saturation 92 % (95-98) L 03/29/17 04:42 PT/INR, D-dimer PT 18.9 Seconds (9.4-12.1) H 03/29/17 04:19 Abnormal lab findings: Abnormal lab results RBC 3.14 M/mcL (3.82-4.97) L 03/29/17 04:19 Hgb 9.6 g/dL (11.5-15.4) L 03/29/17 04:19 Hct 29.6 % (35.3-44.9) L 03/29/17 04:19 RDW 15.0 % (11.5-14.5) H 03/29/17 04:19 Monocytes # 1.4 K/mcL (0.0-1.3) H 03/29/17 04:19 Nucleated RBCs/100 WBC 0.2 /100 WBC (0) H 03/26/17 18:09 PT 18.9 Seconds (9.4-12.1) H 03/29/17 04:19 APTT 16.6 Seconds (26.0-36.0) L 03/26/17 18:09 ABG pO2 62 mmHg (85-104) L 03/29/17 04:42 ABG O2 Saturation 92 % (95-98) L 03/29/17 04:42 Creatinine 1.55 mg/dL (0.57-1.11) H 03/29/17 04:19 Est GFR ( Amer) 40 (> 60) L 03/29/17 04:19 Est GFR (Non-Af Amer) 33 (> 60) L 03/29/17 04:19 Glucose 157 mg/dL (70-99) H 03/29/17 04:19 POC Glucose 143 (58-89) H 03/26/17 18:06 Lactic Acid 2.7 mmol/L (0.5-2.2) H 03/26/17 18:09 Calcium 8.2 mg/dL (8.6-10.8) L 03/29/17 04:19 AST 85 Units/L (5-34) H 03/26/17 18:09 ALT 56 Units/L (0-55) H 03/26/17 18:09 Creatine Kinase 483 Units/L (29-168) H 03/27/17 01:15 Serum Total Protein 5.8 g/dL (6.0-8.3) L 03/26/17 18:09 Albumin 2.8 g/dL (3.5-5.0) L 03/26/17 18:09 Albumin/Globulin Ratio 0.9 (1.1-2.2) L 03/26/17 18:09 - Microbiology Findings Microbiology Findings: Microbiology, Last 48 Hours 03/27/17 01:11 Blood Culture - Preliminary Peripheral Venipuncture No growth. 03/27/17 01:05 Blood Culture - Preliminary Peripheral Venipuncture No growth. - Clinical Findings Intake & Output: Intake & Output 03/28/17 03/29/17 03/29/17 23:59 07:59 15:59 Intake Total 600 / 600 50 / 50 Output Total 750 / 750 370 / 370 Balance -150 / -150 -320 / -320 Weight 102 kg - VTE Documentation of Mechanical Device: Intermittent pneumatic compression device Consult Discharge Plan - Plan Referrals: Rodríguez Sousa DO [Primary Care Provider] - <Lorenzo Merritt - Last Filed: 03/29/17 19:54> Date of Encounter: 03/29/17 Objective PUL Vital signs: Last Vital Signs Temp 98.1 F 03/29/17 10:40 Pulse 102 03/29/17 10:40 Resp 16 03/29/17 16:09 BP 120/79 03/29/17 10:40 Pulse Ox 95 03/29/17 16:09 Results - Laboratory Findings CBC and BMP: 03/29/17 04:19 03/29/17 04:19 ABG ABG pH 7.41 pH Units (7.32-7.45) 03/29/17 04:42 ABG pCO2 36 mmHg (35-45) 03/29/17 04:42 ABG pO2 62 mmHg (85-104) L 03/29/17 04:42 ABG O2 Saturation 92 % (95-98) L 03/29/17 04:42 PT/INR, D-dimer PT 18.9 Seconds (9.4-12.1) H 03/29/17 04:19 Abnormal lab findings: Abnormal lab results RBC 3.14 M/mcL (3.82-4.97) L 03/29/17 04:19 Hgb 9.6 g/dL (11.5-15.4) L 03/29/17 04:19 Hct 29.6 % (35.3-44.9) L 03/29/17 04:19 RDW 15.0 % (11.5-14.5) H 03/29/17 04:19 Monocytes # 1.4 K/mcL (0.0-1.3) H 03/29/17 04:19 Nucleated RBCs/100 WBC 0.2 /100 WBC (0) H 03/26/17 18:09 PT 18.9 Seconds (9.4-12.1) H 03/29/17 04:19 APTT 16.6 Seconds (26.0-36.0) L 03/26/17 18:09 ABG pO2 62 mmHg (85-104) L 03/29/17 04:42 ABG O2 Saturation 92 % (95-98) L 03/29/17 04:42 Creatinine 1.55 mg/dL (0.57-1.11) H 03/29/17 04:19 Est GFR ( Amer) 40 (> 60) L 03/29/17 04:19 Est GFR (Non-Af Amer) 33 (> 60) L 03/29/17 04:19 Glucose 157 mg/dL (70-99) H 03/29/17 04:19 POC Glucose 143 (58-89) H 03/26/17 18:06 Lactic Acid 2.7 mmol/L (0.5-2.2) H 03/26/17 18:09 Calcium 8.2 mg/dL (8.6-10.8) L 03/29/17 04:19 AST 85 Units/L (5-34) H 03/26/17 18:09 ALT 56 Units/L (0-55) H 03/26/17 18:09 Creatine Kinase 483 Units/L (29-168) H 03/27/17 01:15 Serum Total Protein 5.8 g/dL (6.0-8.3) L 03/26/17 18:09 Albumin 2.8 g/dL (3.5-5.0) L 03/26/17 18:09 Albumin/Globulin Ratio 0.9 (1.1-2.2) L 03/26/17 18:09 - Microbiology Findings Microbiology Findings: Microbiology, Last 48 Hours 03/27/17 01:11 Blood Culture - Preliminary Peripheral Venipuncture No growth. 03/27/17 01:05 Blood Culture - Preliminary Peripheral Venipuncture No growth. - Clinical Findings Intake & Output: Intake & Output 03/29/17 03/29/17 03/29/17 07:59 15:59 23:59 Intake Total 50 / 50 Output Total 370 / 370 Balance -320 / -320 - Attending Attestation I saw the patient with the resident agree with History and Physical exam findings. Labs and Radiology were reviewed [employer]ER: Patient is conscious oriented x3 following commands NECK : No JVD appreciated Pulmonary : Patient has hypoxic respiratory most likely due to fluid overload after surgery the V/Q mismatch is caused by fluid overload will continue High flow nasal cannula due to Vaoptherm effect will help better the V/Q mismatch could not diurese because of worsening renal function. Picture is complicated due to underlying emphysema will continue TAI prn nebulizer Cardiac : Hemodynamcially stable Nutrition/GI: According to primary team Renal : Will hold off diuresis due to worsening of renal function Heme onc : No acute issues ID : No active infection issues will continue to deescalate antibiotics Disposition : According to primary team Code status: Full Code Will continue to follow in the floor .
[2017-03-29] MEDS: Letrozole 2.5 MG TABLET PO SCH (09:42)
--- NOTE | 2017-03-29 11:42 | Internal Med Progress Note ---
Date of Encounter: 03/29/17 Time of Encounter: 08:20 - Assessment and plan (1) Acute respiratory failure with hypoxia Current Visit: Yes Status: Acute Assessment and plan: Acute hypoxic respiratory failure - unclear etiology - patient currently on O2 via nasal cannula, BiPAP has been discontinued - symptoms improving Continue DuoNeb breathing treatment, empiric IV Zosyn CTA chest - negative for PE, mild patchy opacities in the right apex, small noncalcified pulmonary nodule EKG - no acute ST-T changes Troponin - 0.01 Echocardiogram - LVEF 65%, mild LV diastolic dysfunction, normal RV, aneurysmal interatrial septum ABG - reviewed Initial suspicion of PE or fat embolism has been ruled out, unlikely to be CHF Cardiac monitoring, continuous pulse ox, labs in a.m., monitor closely, transferred to orthopedic floor 03/28 - patient's O2 sat is 98% on O2 via nasal cannula, doing well without BiPAP , denies chest pain or shortness of breath, states she feels better 03/29 - patient's oxygen requirements have decreased, she is on 7 L oxygen via nasal cannula and her O2 sat is in the low 90s. Lasix has been discontinued. Patient has been evaluated by pulmonology, recommend home O2 qualification at discharge. Follow with pulmonology as outpatient. 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 Silverman 03/28 - continue PT/OT, transfuse 1 unit PRBC, stable from orthopedic standpoint 03/29 - patient has now been transferred back to orthopedic floor, she needs PT/ OT. She will need discharge to [facility]. (3) HLD (hyperlipidemia) Current Visit: Yes Status: Chronic Assessment and plan: Continue Lovastatin Qualifiers: Hyperlipidemia type: pure hypercholesterolemia Qualified Code(s): E78.00 - Pure hypercholesterolemia, unspecified; E78.0 - Pure hypercholesterolemia (4) HTN (hypertension) Current Visit: Yes Status: Chronic Assessment and plan: Essential hypertension, controlled, monitor Continue home dose of Tenormin Qualifiers: Hypertension type: essential hypertension Qualified Code(s): I10 - Essential (primary) hypertension (5) History of left breast cancer Current Visit: No Status: Chronic Assessment and plan: 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 Continue home dose of Letrozole Follows up regularly with oncology (6) H/O: CVA (cerebrovascular accident) Current Visit: Yes Status: Chronic Assessment and plan: History of bihemispheric cerebral lacunar infarcts within the right precentral gyrus and left parietotemporal lobe No obvious residual hemiparesis Patient is on Lovastatin and Coumadin at home Patient does have a history of PFO and that is why she is on anticoagulation with Coumadin (7) Patent foramen ovale with atrial septal aneurysm Current Visit: Yes Status: Chronic Assessment and plan: PFO with atrial septal aneurysm - seen is a small mobile echodensity in the [place] Continue Coumadin for anticoagulation (8) DVT prophylaxis Current Visit: Yes Status: Acute Assessment and plan: Continue Coumadin for anticoagulation INR is subtherapeutic, pharmacy to dose Coumadin - Time Spent With Patient 25 - 35 minutes - Subjective Interval history: Examined this morning. Patient is awake and alert. Not in any distress. She is sitting up in bed. Doing well on O2 via nasal cannula. Patient had a fever last evening. Hemodynamically stable. She denies chest pain or shortness of breath. No other acute events or complaints. States she feels better. Patient did not require BiPAP last night. She needs PT/OT. Complains of generalized weakness. Tolerating oral diet. No other acute events or complaints. Echocardiogram reveals LVEF 65% with normal LV size and function, normal RV size and function. CTA chest is negative for PE, mild patchy opacities and a small noncalcified pulmonary nodule seen. She is currently on DuoNeb breathing treatment and also on Zosyn and Vancomycin. Pulmonology has evaluated the patient. - Constitutional Vitals: Temp Pulse Resp BP Pulse Ox 98.1 F 102 14 120/79 95 03/29/17 10:40 03/29/17 10:40 03/29/17 10:40 03/29/17 10:40 03/29/17 10:40 General appearance: Present: cooperative, A&O X 3, pleasant, no acute distress, answers questions appropriately Exam: Chronically ill-appearing, generalized weakness - Head Head exam: Present: atraumatic - Eye Eye exam: Present: EOMI - ENT ENT exam: Present: mucous membranes moist - Respiratory Respiratory exam: Present: CTAB. Absent: accessory muscle use, chest wall tenderness, rales, rhonchi, wheezes, tachypnea - Cardiovascular Cardiovascular exam: Present: RRR, +S1, +S2 - GI/Abdominal GI/Abdominal exam: Present: soft. Absent: distended, firm, guarding, tenderness - Extremities Exam Extremities exam: Present: radial pulses palpable and symmetrical. Absent: calf tenderness, cyanotic, pedal edema Additional comments: Left total hip replacement - Neurological Exam Neurological exam: Present: alert, oriented X3, no focal deficits. Absent: facial droop, speech deficit Internal Medicine: Result - Labs CBC & Chem 7: 03/29/17 04:19 03/29/17 04:19 Labs: Short CBC 03/29/17 Range/Units 04:19 WBC 10.4 (4.3-11.1) K/mcL Hgb 9.6 L (11.5-15.4) g/dL Hct 29.6 L (35.3-44.9) % Plt Count 144 (140-400) K/mcL Neutrophils # 7.6 (1.6-8.9) K/mcL BMP 03/29/17 04:19 Sodium 138 Potassium 3.9 Chloride 108 Carbon Dioxide 21 BUN 20 Creatinine 1.55 H Glucose 157 H Calcium 8.2 L - ABG Interpretation ABG results: ABG ABG pH 7.41 pH Units (7.32-7.45) 03/29/17 04:42 ABG pCO2 36 mmHg (35-45) 03/29/17 04:42 ABG pO2 62 mmHg (85-104) L 03/29/17 04:42 ABG O2 Saturation 92 % (95-98) L 03/29/17 04:42 PT/INR, D-dimer PT 18.9 Seconds (9.4-12.1) H 03/29/17 04:19 - Impressions Impressions Chest X-Ray 03/28/17 11:17 IMPRESSION: No acute cardiopulmonary disease. D/ / Molina Glez MD / Molina Glez MD Interpreting Provider: Molina Glez MD - VTE Documentation of Mechanical Device: Intermittent pneumatic compression device Consult Discharge Plan - Plan Referrals: Rodríguez Sousa DO [Primary Care Provider] -
[2017-03-29] MEDS ORDERED: *HR* Warfarin 5 MG TABLET PO SCH (18:00)
[2017-03-29] MEDS: traZODone 50 MG TABLET PO SCH (21:58)
[2017-03-30 02:02] LABS: CK-BB (CK isoenzymes) 0 % (0-0); CK-MB (CK isoenzymes) 0 % (0-4); CK-MM (CK-isoenzymes) 100 % (96-100)
[2017-03-30 02:02] LABS: CK-BB (CK isoenzymes) 0 % (0-0); CK-MB (CK isoenzymes) 0 % (0-4); CK-MM (CK-isoenzymes) 100 % (96-100)
[2017-03-30] MEDS: Ipratropium/Albuterol Neb 3 ML IH SCH ×4 (04:33→21:33)
[2017-03-30 05:34] LABS: Basophils % 0.2 %; Eosinophils # 0.3 K/mcL (0.0-0.6); Eosinophils % 2.9 %; Hematocrit 28.2 % (35.3-44.9); Hemoglobin 9.2 g/dL (11.5-15.4); Immature Granulocytes % 0.8 % (0-4); Lymphocytes # 1.1 K/mcL (0.6-4.6); Lymphocytes % 12.5 %; Mean Corpuscular HGB Conc 32.6 g/dL (31.6-35.5); Mean Corpuscular Hemoglobin 30.8 pg (28.0-33.3); Mean Corpuscular Volume 94.3 fL (83.0-100.0); Mean Platelet Volume 11.9 fL (9.4-12.4); Monocytes # 1.2 K/mcL (0.0-1.3); Monocytes % 14.4 %; Platelet Count 174 K/mcL (140-400); Red Blood Count 2.99 M/mcL (3.82-4.97); Red Cell Distribution Width 14.8 % (11.5-14.5); Segmented Neutrophils % 69.2 %
[2017-03-30 05:45] LABS: Calcium 8.4 mg/dL (8.6-10.8)
[2017-03-30 05:58] LABS: INR 2.2; Prothrombin Time 24.4 Seconds (9.4-12.1)
[2017-03-30] MEDS: Piperacillin/Tazobactam 3.375 GM in D5% in Water 50 ML IVPB SCH ×2 (06:28→13:49)
[2017-03-30 08:12] LABS: CK Total (Ck Isoenzymes) 430 U/L (20-180)
[2017-03-30 08:15] LABS: CK Total (Ck Isoenzymes) 481 U/L (20-180)
--- NOTE | 2017-03-30 08:37 | Orthopedics Progress Note ---
Date of Encounter: 03/30/17 Time of Encounter: 08:37 - Assessment and Plan (1) Breast cancer, left Current Visit: No Status: Chronic Qualifiers: Breast location: unspecified site of breast Estrogen receptor status: unspecified Patient sex: female Qualified Code(s): C50.912 - Malignant neoplasm of unspecified site of left female breast (2) TIA (transient ischemic attack) Current Visit: No Status: Chronic Qualifiers: Transient cerebral ischemia type: other Qualified Code(s): G45.8 - Other transient cerebral ischemic attacks and related syndromes (3) HLD (hyperlipidemia) Current Visit: Yes Status: Chronic Qualifiers: Hyperlipidemia type: pure hypercholesterolemia Qualified Code(s): E78.00 - Pure hypercholesterolemia, unspecified; E78.0 - Pure hypercholesterolemia (4) Depression Current Visit: No Status: Acute Qualifiers: Depression Type: major depressive disorder Major depression recurrence: single episode Active/Remission status: in full remission Qualified Code(s) : F32.5 - Major depressive disorder, single episode, in full remission (5) HTN (hypertension) Current Visit: Yes Status: Chronic Qualifiers: Hypertension type: essential hypertension Qualified Code(s): I10 - Essential (primary) hypertension (6) Acute CVA (cerebrovascular accident) Current Visit: No Status: Suspected (7) Patent foramen ovale with atrial septal aneurysm Current Visit: Yes Status: Chronic (8) Arthritis of left hip Current Visit: No Status: Chronic (9) Status post total hip replacement, left Current Visit: No Status: Acute (10) Obesity Current Visit: No Status: Chronic Qualifiers: Obesity type: due to excess calories Obesity classification: adult class 1 (BMI 30 - 34.9) Serious obesity comorbidity presence: unspecified whether serious comorbidity present Body mass index: BMI 32.0-32.9 Qualified Code(s) : E66.09 - Other obesity due to excess calories; Z68.32 - Body mass index (BMI) 32.0-32.9, adult; Z68.32 - Body mass index (BMI) 32.0-32.9, adult (11) Anticoagulated Current Visit: No Status: Chronic (12) Acute blood loss anemia Current Visit: Yes Status: Acute (13) Acute respiratory failure with hypoxia Current Visit: Yes Status: Acute Subjective Principal diagnosis: Left hip pain Interval history: Patient was seen this morning on the orthopedic floor doing better. Requiring 4 L nasal cannula Afebrile vital signs stable. Operative extremity: Neurovascularly intact Dressing clean dry and intact Calves nontender Assessment and plan: Continue with postoperative care Important to get patient moving. Objective Vital signs: Vital Signs Temp Pulse Resp BP Pulse Ox 03/30/17 04:33 16 98 03/30/17 00:18 98.5 F 78 123/81 96 03/29/17 22:07 18 94 03/29/17 21:33 99.0 F 84 19 116/66 94 03/29/17 16:09 16 95 03/29/17 10:40 98.1 F 102 14 120/79 95 Intake and Output 03/29/17 03/30/17 03/30/17 23:59 07:59 15:59 Intake Total 160 / 160 50 / 50 Balance 160 / 160 50 / 50 Intake: IV Fluids 50 / 50 50 / 50 Zosyn 3.375 GM In Dextrose 5% ( 50 / 50 50 / 50 ADD-[place]) 50 ML @ 12.5 mls/ hr IVPB Q8H [facility] Rx#:[id number] Oral 110 / 110 Other: Meal Dinner Percent of Meal Consumed 50% Weight 97 kg Patient Weight 03/30/17 23:59 Weight 97 kg - Labs CBC & BMP: 03/30/17 04:59 03/30/17 04:59 Labs: Abnormal lab results RBC 2.99 M/mcL (3.82-4.97) L 03/30/17 04:59 Hgb 9.2 g/dL (11.5-15.4) L 03/30/17 04:59 Hct 28.2 % (35.3-44.9) L 03/30/17 04:59 RDW 14.8 % (11.5-14.5) H 03/30/17 04:59 Nucleated RBCs/100 WBC 0.2 /100 WBC (0) H 03/26/17 18:09 PT 24.4 Seconds (9.4-12.1) H 03/30/17 04:59 APTT 16.6 Seconds (26.0-36.0) L 03/26/17 18:09 ABG pO2 62 mmHg (85-104) L 03/29/17 04:42 ABG O2 Saturation 92 % (95-98) L 03/29/17 04:42 BUN 30 mg/dL (7-20) H D 03/30/17 04:59 Creatinine 2.42 mg/dL (0.57-1.11) H D 03/30/17 04:59 Est GFR ( Amer) 24 (> 60) L 03/30/17 04:59 Est GFR (Non-Af Amer) 19 (> 60) L 03/30/17 04:59 Glucose 112 mg/dL (70-99) H 03/30/17 04:59 POC Glucose 143 (58-89) H 03/26/17 18:06 Lactic Acid 2.7 mmol/L (0.5-2.2) H 03/26/17 18:09 Calcium 8.4 mg/dL (8.6-10.8) L 03/30/17 04:59 AST 85 Units/L (5-34) H 03/26/17 18:09 ALT 56 Units/L (0-55) H 03/26/17 18:09 Creatine Kinase 481 U/L (20-180) H 03/27/17 01:15 Serum Total Protein 5.8 g/dL (6.0-8.3) L 03/26/17 18:09 Albumin 2.8 g/dL (3.5-5.0) L 03/26/17 18:09 Albumin/Globulin Ratio 0.9 (1.1-2.2) L 03/26/17 18:09 - VTE Documentation of Mechanical Device: Venous foot pump, device Consult Discharge Plan - Plan Referrals: Rodríguez Sousa DO [Primary Care Provider] -
[2017-03-30] MEDS ORDERED: *HR* Enoxaparin 30 MG/0.3 ML SYRINGE SQ SCH (09:00)
[2017-03-30] MEDS: *HR* OxyCODONE Immed Rel 5 MG TABLET PO PRN (09:44)
[2017-03-30] MEDS: Ascorbic Acid 500 MG TABLET PO SCH ×2 (09:44→16:32)
[2017-03-30] MEDS: Letrozole 2.5 MG TABLET PO SCH (09:44)
[2017-03-30] MEDS: Multivit/Ca/Min/Fe/FA 1 TAB TABLET PO SCH (09:44)
--- NOTE | 2017-03-30 14:39 | Internal Med Progress Note ---
Date of Encounter: 03/30/17 Time of Encounter: 09:50 - Assessment and plan (1) Acute respiratory failure with hypoxia Current Visit: Yes Status: Acute Assessment and plan: Acute hypoxic respiratory failure - unclear etiology - patient currently on O2 via nasal cannula, BiPAP has been discontinued - symptoms now improved Continue DuoNeb breathing treatment, empiric IV Zosyn CTA chest - negative for PE, mild patchy opacities in the right apex, small noncalcified pulmonary nodule EKG - no acute ST-T changes Troponin - 0.01 Echocardiogram - LVEF 65%, mild LV diastolic dysfunction, normal RV, aneurysmal interatrial septum ABG - reviewed Initial suspicion of PE or fat embolism has been ruled out, unlikely to be CHF Cardiac monitoring, continuous pulse ox, labs in a.m., monitor closely 03/28 - patient's O2 sat is 98% on O2 via nasal cannula, doing well without BiPAP , denies chest pain or shortness of breath, states she feels better 03/29 - patient's oxygen requirements have decreased, she is on 7 L oxygen via nasal cannula and her O2 sat is in the low 90s. Lasix has been discontinued. Patient has been evaluated by pulmonology, recommend home O2 qualification at discharge. Follow with pulmonology as outpatient. 03/30 - doing well on O2 via nasal cannula at 2 L/m. Patient will need home O2 qualification test. Serum creatinine is elevated, we will try gentle IV hydration. Repeat labs in a.m. She will need outpatient follow-up pulmonology. Anticipate discharge to [facility]CF tomorrow. 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 Silverman 03/28 - continue PT/OT, transfuse 1 unit PRBC, stable from orthopedic standpoint 03/29 - patient has now been transferred back to orthopedic floor, she needs PT/ OT. She will need discharge to ECF. 03/30 - continue PT/OT. Anticipate discharge to ECF tomorrow. Repeat BMP in a.m. (3) HLD (hyperlipidemia) Current Visit: Yes Status: Chronic Assessment and plan: Continue home dose of Lovastatin Qualifiers: Hyperlipidemia type: pure hypercholesterolemia Qualified Code(s): E78.00 - Pure hypercholesterolemia, unspecified; E78.0 - Pure hypercholesterolemia (4) HTN (hypertension) Current Visit: Yes Status: Chronic Assessment and plan: Essential hypertension, controlled, monitor Continue home dose of Tenormin Qualifiers: Hypertension type: essential hypertension Qualified Code(s): I10 - Essential (primary) hypertension (5) History of left breast cancer Current Visit: No Status: Chronic Assessment and plan: 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 Continue home dose of Letrozole Follows up regularly with oncology (6) H/O: CVA (cerebrovascular accident) Current Visit: Yes Status: Chronic Assessment and plan: History of bihemispheric cerebral lacunar infarcts within the right precentral gyrus and left parietotemporal lobe No obvious residual hemiparesis Patient is on Lovastatin and Coumadin at home Patient does have a history of PFO and that is why she is on anticoagulation with Coumadin (7) Patent foramen ovale with atrial septal aneurysm Current Visit: Yes Status: Chronic Assessment and plan: PFO with atrial septal aneurysm - seen is a small mobile echodensity in the [place] Continue Coumadin for anticoagulation (8) DVT prophylaxis Current Visit: Yes Status: Acute Assessment and plan: Continue Coumadin for anticoagulation INR is therapeutic pharmacy to dose Coumadin - Time Spent With Patient 25 - 35 minutes - Subjective Interval history: Examined this morning. Patient is awake and alert. Not in any distress. She is sitting up in bed. Doing well on O2 via nasal cannula. No fever. Hemodynamically stable. She denies chest pain or shortness of breath. No other acute events or complaints. States she feels better. Patient did not require BiPAP last night. She needs PT/OT. Tolerating oral diet. Ambulating with assistance. No other acute events or complaints. Serum creatinine is elevated today. We will start gentle IV hydration. Anticipate discharge to F tomorrow. Echocardiogram reveals LVEF 65% with normal LV size and function, normal RV size and function. CTA chest is negative for PE, mild patchy opacities and a small noncalcified pulmonary nodule seen. She is currently on DuoNeb breathing treatment and also on Zosyn and Vancomycin. Pulmonology has evaluated the patient. - Constitutional Vitals: Temp Pulse Resp BP Pulse Ox 97.7 F 82 15 116/67 97 03/30/17 14:32 03/30/17 14:32 03/30/17 14:32 03/30/17 14:32 03/30/17 14:32 General appearance: Present: cooperative, A&O X 3, pleasant, no acute distress, answers questions appropriately Exam: Chronically ill-appearing, generalized weakness - Head Head exam: Present: atraumatic - Eye Eye exam: Present: EOMI - ENT ENT exam: Present: mucous membranes moist - Respiratory Respiratory exam: Present: CTAB. Absent: rales, rhonchi, wheezes, tachypnea - Cardiovascular Cardiovascular exam: Present: RRR, +S1, +S2 - GI/Abdominal GI/Abdominal exam: Present: soft. Absent: distended, firm, guarding, tenderness - Extremities Exam Extremities exam: Present: radial pulses palpable and symmetrical. Absent: calf tenderness, cyanotic, pedal edema Additional comments: Left total hip replacement - Neurological Exam Neurological exam: Present: alert, oriented X3, no focal deficits. Absent: facial droop, speech deficit Internal Medicine: Result - Labs CBC & Chem 7: 03/30/17 04:59 03/30/17 04:59 Labs: Short CBC 03/30/17 Range/Units 04:59 WBC 8.6 (4.3-11.1) K/mcL Hgb 9.2 L (11.5-15.4) g/dL Hct 28.2 L (35.3-44.9) % Plt Count 174 (140-400) K/mcL Neutrophils # 6.0 (1.6-8.9) K/mcL BMP 03/30/17 04:59 Sodium 138 Potassium 4.0 Chloride 109 Carbon Dioxide 22 BUN 30 H D Creatinine 2.42 H D Glucose 112 H Calcium 8.4 L Cardiac Enzymes 03/26/17 03/27/17 Range/Units 18:09 01:15 CK-MB (CK-2) 0 0 (0-4) % - ABG Interpretation ABG results: ABG ABG pH 7.41 pH Units (7.32-7.45) 03/29/17 04:42 ABG pCO2 36 mmHg (35-45) 03/29/17 04:42 ABG pO2 62 mmHg (85-104) L 03/29/17 04:42 ABG O2 Saturation 92 % (95-98) L 03/29/17 04:42 PT/INR, D-dimer PT 24.4 Seconds (9.4-12.1) H 03/30/17 04:59 - VTE Documentation of Mechanical Device: Venous foot pump, device Consult Discharge Plan - Plan Referrals: Rodríguez Sousa DO [Primary Care Provider] -
[2017-03-30] MEDS ORDERED: 0.9 % Sodium Chloride 1,000 ML IVC SCH (14:45)
[2017-03-30] MEDS ORDERED: *HR* Warfarin 2.5 MG TABLET PO ONE (18:00)
[2017-03-30] MEDS: traZODone 50 MG TABLET PO SCH (20:00)
[2017-03-31] MEDS ORDERED: Piperacillin/Tazobactam 3.375 GM in D5% in Water 50 ML IVPB SCH (02:00)
[2017-03-31 05:24] LABS: INR 2.2; Prothrombin Time 24.4 Seconds (9.4-12.1)
[2017-03-31 05:26] LABS: Calcium 8.1 mg/dL (8.6-10.8); Potassium 4.1 mEq/L (3.5-4.5)
[2017-03-31] MEDS: Ipratropium/Albuterol Neb 3 ML IH SCH ×4 (05:27→22:47)
--- NOTE | 2017-03-31 06:34 | Orthopedics Progress Note ---
Date of Encounter: 03/31/17 Time of Encounter: 06:33 - Assessment and Plan (1) Breast cancer, left Current Visit: No Status: Chronic Qualifiers: Breast location: unspecified site of breast Estrogen receptor status: unspecified Patient sex: female Qualified Code(s): C50.912 - Malignant neoplasm of unspecified site of left female breast (2) TIA (transient ischemic attack) Current Visit: No Status: Chronic Qualifiers: Transient cerebral ischemia type: other Qualified Code(s): G45.8 - Other transient cerebral ischemic attacks and related syndromes (3) HLD (hyperlipidemia) Current Visit: Yes Status: Chronic Qualifiers: Hyperlipidemia type: pure hypercholesterolemia Qualified Code(s): E78.00 - Pure hypercholesterolemia, unspecified; E78.0 - Pure hypercholesterolemia (4) Depression Current Visit: No Status: Acute Qualifiers: Depression Type: major depressive disorder Major depression recurrence: single episode Active/Remission status: in full remission Qualified Code(s) : F32.5 - Major depressive disorder, single episode, in full remission (5) HTN (hypertension) Current Visit: Yes Status: Chronic Qualifiers: Hypertension type: essential hypertension Qualified Code(s): I10 - Essential (primary) hypertension (6) Acute CVA (cerebrovascular accident) Current Visit: No Status: Suspected (7) Patent foramen ovale with atrial septal aneurysm Current Visit: Yes Status: Chronic (8) Arthritis of left hip Current Visit: No Status: Chronic (9) Status post total hip replacement, left Current Visit: No Status: Acute (10) Obesity Current Visit: No Status: Chronic Qualifiers: Obesity type: due to excess calories Obesity classification: adult class 1 (BMI 30 - 34.9) Serious obesity comorbidity presence: unspecified whether serious comorbidity present Body mass index: BMI 32.0-32.9 Qualified Code(s) : E66.09 - Other obesity due to excess calories; Z68.32 - Body mass index (BMI) 32.0-32.9, adult; Z68.32 - Body mass index (BMI) 32.0-32.9, adult (11) Anticoagulated Current Visit: No Status: Chronic (12) Acute blood loss anemia Current Visit: Yes Status: Acute (13) Acute respiratory failure with hypoxia Current Visit: Yes Status: Acute Subjective Principal diagnosis: Left hip pain Interval history: Patient was seen this morning on the orthopedic floor doing better. Requiring 4 L nasal cannula Afebrile vital signs stable. Operative extremity: Neurovascularly intact Dressing clean dry and intact Calves nontender Assessment and plan: Continue with postoperative care Discharge today Objective Vital signs: Vital Signs Temp Pulse Resp BP Pulse Ox 03/31/17 05:29 16 95 03/31/17 03:39 98.7 F 83 16 113/70 94 03/30/17 23:30 98.6 F 16 120/63 94 03/30/17 21:33 18 92 03/30/17 19:32 99 F 80 16 109/61 96 03/30/17 18:27 98.1 F 84 16 111/71 98 03/30/17 15:21 16 100 03/30/17 14:32 97.7 F 82 15 116/67 97 03/30/17 10:55 18 98 03/30/17 08:51 98.8 F 84 16 135/83 98 Intake and Output 03/30/17 03/30/17 03/31/17 15:59 23:59 07:59 Intake Total 50 / 50 Output Total 1750 / 1750 750 / 750 Balance -1700 / -1700 -750 / -750 Intake: IV Fluids 50 / 50 Zosyn 3.375 GM In Dextrose 5% ( 50 / 50 ADD-[place]) 50 ML @ 12.5 mls/ hr IVPB Q8H [facility] Rx#:[id number] Output: Urine 750 / 750 Catheter 1750 / 1750 - Labs CBC & BMP: 03/30/17 04:59 03/31/17 Unknown Labs: Abnormal lab results RBC 2.99 M/mcL (3.82-4.97) L 03/30/17 04:59 Hgb 9.2 g/dL (11.5-15.4) L 03/30/17 04:59 Hct 28.2 % (35.3-44.9) L 03/30/17 04:59 RDW 14.8 % (11.5-14.5) H 03/30/17 04:59 Nucleated RBCs/100 WBC 0.2 /100 WBC (0) H 03/26/17 18:09 PT 24.4 Seconds (9.4-12.1) H 03/31/17 Unknown APTT 16.6 Seconds (26.0-36.0) L 03/26/17 18:09 ABG pO2 62 mmHg (85-104) L 03/29/17 04:42 ABG O2 Saturation 92 % (95-98) L 03/29/17 04:42 BUN 37 mg/dL (7-20) H 03/31/17 Unknown Creatinine 2.70 mg/dL (0.57-1.11) H 03/31/17 Unknown Est GFR ( Amer) 21 (> 60) L 03/31/17 Unknown Est GFR (Non-Af Amer) 17 (> 60) L 03/31/17 Unknown Glucose 145 mg/dL (70-99) H 03/31/17 Unknown POC Glucose 143 (58-89) H 03/26/17 18:06 Lactic Acid 2.7 mmol/L (0.5-2.2) H 03/26/17 18:09 Calcium 8.1 mg/dL (8.6-10.8) L 03/31/17 Unknown AST 85 Units/L (5-34) H 03/26/17 18:09 ALT 56 Units/L (0-55) H 03/26/17 18:09 Creatine Kinase 481 U/L (20-180) H 03/27/17 01:15 Serum Total Protein 5.8 g/dL (6.0-8.3) L 03/26/17 18:09 Albumin 2.8 g/dL (3.5-5.0) L 03/26/17 18:09 Albumin/Globulin Ratio 0.9 (1.1-2.2) L 03/26/17 18:09 - VTE Documentation of Mechanical Device: Venous foot pump, device Consult Discharge Plan - Plan Referrals: Rodríguez Sousa DO [Primary Care Provider] -
[2017-03-31] MEDS: Multivit/Ca/Min/Fe/FA 1 TAB TABLET PO SCH (09:43)
[2017-03-31] MEDS: Letrozole 2.5 MG TABLET PO SCH (09:43)
[2017-03-31] MEDS: Ascorbic Acid 500 MG TABLET PO SCH ×2 (09:43→16:04)
--- NOTE | 2017-03-31 13:21 | Discharge Summary ---
Date of Encounter: 03/31/17 Time of Encounter: 09:00 - Discharge Diagnosis (1) Acute respiratory failure with hypoxia Priority: Primary Status: Acute Comments: Acute hypoxic respiratory failure - unclear etiology - patient currently on O2 via nasal cannula, BiPAP has been discontinued - symptoms now improved Continue DuoNeb breathing treatment, empiric IV Zosyn CTA chest - negative for PE, mild patchy opacities in the right apex, small noncalcified pulmonary nodule EKG - no acute ST-T changes Troponin - 0.01 Echocardiogram - LVEF 65%, mild LV diastolic dysfunction, normal RV, aneurysmal interatrial septum ABG - reviewed Initial suspicion of PE or fat embolism has been ruled out, unlikely to be CHF Cardiac monitoring, continuous pulse ox, labs in a.m., monitor closely 03/28 - patient's O2 sat is 98% on O2 via nasal cannula, doing well without BiPAP , denies chest pain or shortness of breath, states she feels better 03/29 - patient's oxygen requirements have decreased, she is on 7 L oxygen via nasal cannula and her O2 sat is in the low 90s. Lasix has been discontinued. Patient has been evaluated by pulmonology, recommend home O2 qualification at discharge. Follow with pulmonology as outpatient. 03/30 - doing well on O2 via nasal cannula at 2 L/m. Patient will need home O2 qualification test. Serum creatinine is elevated, we will try gentle IV hydration. Repeat labs in a.m. She will need outpatient follow-up pulmonology. Anticipate discharge to ECF tomorrow. 03/31 - patient sitting up comfortably in chair. Doing well on O2 via nasal cannula at 2 L. Serum creatinine is elevated again today. Continue IV hydration and encourage by mouth fluids. Anticipate discharge to ECF soon when serum creatinine is trending down. No new complaints or acute events. 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 Silverman 03/28 - continue PT/OT, transfuse 1 unit PRBC, stable from orthopedic standpoint 03/29 - patient has now been transferred back to orthopedic floor, she needs PT/ OT. She will need discharge to ECF. 03/30 - continue PT/OT. Anticipate discharge to ECF tomorrow. Repeat BMP in a.m. 03/31 - patient is doing well at this time. Serum creatinine is elevated. Repeat BMP and discharge to ECF soon. 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 Continue home dose of Letrozole Follows up regularly with oncology (6) H/O: CVA (cerebrovascular accident) Priority: Primary Status: Chronic Comments: History of bihemispheric cerebral lacunar infarcts within the right precentral gyrus and left parietotemporal lobe No obvious residual hemiparesis Patient is on Lovastatin and Coumadin at home Patient does have a history of PFO and that is why she is on anticoagulation with Coumadin (7) Patent foramen ovale with atrial septal aneurysm Priority: Primary Status: Chronic Comments: PFO with atrial septal aneurysm - seen is a small mobile echodensity in the LA Continue Coumadin for anticoagulation (8) DVT prophylaxis Priority: Primary Status: Acute Comments: Continue Coumadin for anticoagulation INR is therapeutic pharmacy to dose Coumadin - Discharge Medications Prescriptions: Ipratropium/Albuterol Neb [Duoneb] 3 ml IH [id number] PRN #30 inhsol PRN Reason: Shortness Of Breath/Wheezing OxyCODONE Immed Rel [Roxicodone 5 MG] 5 mg PO Q6HR PRN #10 tablet PRN Reason: Moderate pain 4-6 Multivit/Ca/Min/Fe/FA [Thera M Plus] 1 tab PO DAILY #30 tablet Home Medications: Atenolol [Tenormin] 50 mg PO DAILY 12/27/14 [History] Cyclobenzaprine [Flexeril] 10 mg PO TID PRN 12/27/14 [History] Lovastatin [Mevacor] 20 mg PO HS 12/27/14 [History] Omeprazole [Prilosec] 40 mg PO BID 12/27/14 [History] Letrozole 2.5 mg PO DAILY #90 tablet 12/29/14 [Rx] Diclofenac Sodium [Voltaren] 50 mg PO BID 06/09/16 [History] Trazodone HCl 200 mg PO HS 06/09/16 [History] Warfarin [Coumadin] 5 mg PO 1800 #30 tablet 06/11/16 [Rx] Furosemide [Lasix] 20 mg PO DAILY PRN 03/26/17 [History] Ipratropium/Albuterol Neb [Duoneb] 3 ml IH [id number] PRN #30 inhsol 03/31/17 [Rx] Multivit/Ca/Min/Fe/FA [Thera M Plus] 1 tab PO DAILY #30 tablet 03/31/17 [Rx] OxyCODONE Immed Rel [Roxicodone 5 MG] 5 mg PO Q6HR PRN #10 tablet 03/31/17 [Rx] Allergies/Adverse Reactions: 3 Allergy/AdvReac Type Severity Reaction Status Date / Time No Known Allergies Allergy Verified 03/26/17 07:39 Date of admission: 03/26/17 10:37 Primary care physician: Rodríguez Sousa, Consults: 03/26/17 10:29 Consult to Nurse Navigator [CONS] Routine Comment: ortho navigator Consult to Occupational Therapy [CONS] Routine Comment: Evaluate, develop and implement POC Reason for Consult: total hip replacement Consult to Physical Therapy [CONS] Routine Comment: Evaluate, develop and implement POC Reason for Consult: total hip replacement Consult to [place] [CONS] Routine Reason for SW Consult: post op joint replacement RT Post Op Consult [CONS] Routine 03/26/17 10:44 Consult to Nutrition [CONS] Routine Comment: Consulting Provider: NUTRITION Reason for Dietary Consult: MST Score 03/26/17 16:17 Consult to Physician [CONS] Routine Consulting Provider: Romero Dumont Reason for Consult: low bp Call Completed: Yes 03/26/17 16:49 Consult to Invasive Line Access Team [CONS] Routine Reason for Consult: Picc Line Insertion Line Type: EPIV 03/27/17 14:02 Consult for Pharmacy Education [CONS] Routine Reason for Consult: Coumadin dosing Call Completed: No 03/28/17 07:06 Consult to Pulmonology [CONS] Routine Consulting Provider: [facility] [place] Reason for Consult: persistent hypoxia Call Completed: No Anticipated date of discharge: 03/31/17 - Patient Status Disposition: Transfer Inpatient Rehab Fac Condition: Good Functional capacity at discharge: uses cane/walker Overall status at discharge: patient is back to baseline - Discharge Instructions Follow Up With: Rodríguez Sousa DO [Primary Care Provider] - Kobe Silverman MD [Partnered Physician] - - Diet and Activity Activity: as per physical therapy, increase activity as tolerated, resume usual activities as tolerated, wear oxygen at all times Diet: advance to your usual diet, low fat, low cholesterol, low salt diet Hospital course: Ms. Steward is a 76 year old female with past medical history hypertension, depression, breast cancer, GERD, CVA and hyperlipidemia. Patient presented to the hospital for elective robotic hip replacement. She developed hypoxia and hypotension during surgery. Hospitalist service was consulted for further evaluation and management. Patient was admitted to the ICU. She did complain of shortness of breath. She required O2 via nasal cannula initially. Her oxygen requirements then went up and she was then on BiPAP. There was initial suspicion for PE or fat embolism. CTA chest is negative for PE and there are mild patchy opacities. Patient was started on DuoNeb breathing treatment and empiric IV antibiotics. Patient did get serial ABGs and PCO2 was within normal limits and PO2 was also normal. Patient was given Lasix in the ED for hypoxia. She did not seem fluid overloaded. This did improve her hypoxia and her oxygen requirements are now decreased. She is doing well on 2 L nasal cannula. Troponin is negative. Pulmonology has evaluated patient. Advised judicious use of pain medication. Advised continue supplemental oxygen and to keep O2 sats above 88%. Patient also needs clarification test for home O2 use. Advised outpatient pulmonology follow-up. Patient is in transfer out of the ICU to the orthopedic floor. She is currently ambulating well with assistance and tolerating oral diet well. She is sitting up comfortably in chair. No other acute events or complications during her stay in the hospital. Patient and her have been explained about her condition and plan of care detail. We are awaiting ECF placement at this time. Patient did have acute kidney injury likely due to the Lasix use. She is currently on IV fluids and we will repeat a BMP to trend her serum creatinine. Patient is stable for discharge from orthopedic standpoint. Her hypoxia is also resolved. She has no complaints. We will wait for her serum creatinine to trend down. Patient is otherwise stable for discharge. - Time Spent with Patient Total time spent providing and/or coordinating discharge services: Greater than 30 minutes - Constitutional Vitals: Temp Pulse Resp BP Pulse Ox 99.0 F 67 16 159/88 98 03/31/17 12:46 03/31/17 12:46 03/31/17 12:46 03/31/17 12:46 03/31/17 12:46 General appearance: Present: cooperative, A&O X 3, pleasant, no acute distress, answers questions appropriately - Head Head exam: Present: atraumatic - Eye Eye exam: Present: EOMI - ENT ENT exam: Present: mucous membranes moist - Respiratory Respiratory exam: Present: CTAB. Absent: accessory muscle use, chest wall tenderness, rales, rhonchi, wheezes, tachypnea - Cardiovascular Cardiovascular exam: Present: RRR, +S1, +S2 - GI/Abdominal GI/Abdominal exam: Present: soft. Absent: distended, firm, guarding, tenderness - Extremities Exam Extremities exam: Present: radial pulses palpable and symmetrical. Absent: calf tenderness, cyanotic, pedal edema Additional comments: Left total hip replacement - Neurological Exam Neurological exam: Present: alert, oriented X3, no focal deficits. Absent: facial droop, speech deficit - VTE Documentation of Mechanical Device: Venous foot pump, device
--- NOTE | 2017-03-31 13:32 | Physician Discharge Referral ---
ExtendedCare Referral Info Provider in Charge after Transfer: PCP Institutional Level of Care: Skilled - Diagnosis (1) Acute respiratory failure with hypoxia Priority: Primary Status: Acute (2) Status post total hip replacement, left Priority: Primary Status: Acute (3) HLD (hyperlipidemia) Priority: Secondary Status: Chronic (4) HTN (hypertension) Priority: Secondary Status: Chronic (5) History of left breast cancer Priority: Secondary Status: Chronic (6) H/O: CVA (cerebrovascular accident) Priority: Secondary Status: Chronic (7) Patent foramen ovale with atrial septal aneurysm Priority: Secondary Status: Chronic (8) DVT prophylaxis Priority: Secondary Status: Acute Prognosis: Good Aware of Diagnosis: Patient, Family Aware of Prognosis: Patient, Family - Transfer Medications Prescriptions: Ipratropium/Albuterol Neb [Duoneb] 3 ml IH [id number] PRN #30 inhsol PRN Reason: Shortness Of Breath/Wheezing OxyCODONE Immed Rel [Roxicodone 5 MG] 5 mg PO Q6HR PRN #10 tablet PRN Reason: Moderate pain 4-6 Multivit/Ca/Min/Fe/FA [Thera M Plus] 1 tab PO DAILY #30 tablet Home Medications: Atenolol [Tenormin] 50 mg PO DAILY 12/27/14 [History] Cyclobenzaprine [Flexeril] 10 mg PO TID PRN 12/27/14 [History] Lovastatin [Mevacor] 20 mg PO HS 12/27/14 [History] Omeprazole [Prilosec] 40 mg PO BID 12/27/14 [History] Letrozole 2.5 mg PO DAILY #90 tablet 12/29/14 [Rx] Diclofenac Sodium [Voltaren] 50 mg PO BID 06/09/16 [History] Trazodone HCl 200 mg PO HS 06/09/16 [History] Warfarin [Coumadin] 5 mg PO 1800 #30 tablet 06/11/16 [Rx] Furosemide [Lasix] 20 mg PO DAILY PRN 03/26/17 [History] Ipratropium/Albuterol Neb [Duoneb] 3 ml IH [id number] PRN #30 inhsol 03/31/17 [Rx] Multivit/Ca/Min/Fe/FA [Thera M Plus] 1 tab PO DAILY #30 tablet 03/31/17 [Rx] OxyCODONE Immed Rel [Roxicodone 5 MG] 5 mg PO Q6HR PRN #10 tablet 03/31/17 [Rx] Allergies/Adverse Reactions: 3 Allergy/AdvReac Type Severity Reaction Status Date / Time No Known Allergies Allergy Verified 03/26/17 07:39 - Respiratory Orders Smoking Cessation: Smoking cessation has been advised. For more information, call the [place] Tobacco Quit Line at 2-339-CELJ-NOW. - Lab Orders Lab Orders: Other (include drug levels w/frequency) (Check BMP in 3 days time, Check PT/INR weekly) - Ancillary Orders May use pressure relief devices daily prn - Advance Directives Code Status: Full Code - Mobility Orders Ambulate - Rehabiliation Orders Rehab Potential: Good Rehab Orders: Evaluation for Physical Therapy, Evaluation for Occupational Therapy - Treatments Skin tear care topically daily PRN per policy - Diet Orders Cardiac CERTIFICATION: I certify that the transfer of the above named patient to an Extended Care Facility is necessary for the continuing treatment of the diagnosis listed. The above information is true and accurate reflection of patient's current condition. Confidential - Redisclosure prohibited without a patient's written consent.
[2017-03-31] MEDS: 0.9 % Sodium Chloride 1,000 ML IVC SCH (16:03)
[2017-03-31] MEDS ORDERED: *HR* Warfarin 5 MG TABLET PO ONE (18:00)
[2017-03-31] MEDS: *HR* OxyCODONE Immed Rel 5 MG TABLET PO PRN (19:28)
[2017-03-31] MEDS: traZODone 50 MG TABLET PO SCH (21:18)
[2017-04-01] MEDS: Ipratropium/Albuterol Neb 3 ML IH SCH ×2 (03:25→11:15)
[2017-04-01] MEDS: *HR* OxyCODONE Immed Rel 5 MG TABLET PO PRN ×2 (05:34→11:12)
[2017-04-01 05:50] LABS: INR 1.9; Prothrombin Time 21.1 Seconds (9.4-12.1)
[2017-04-01 06:00] LABS: Calcium 8.2 mg/dL (8.6-10.8); Potassium 4.3 mEq/L (3.5-4.5)
[2017-04-01 06:40] VITALS: BP 129/71
--- NOTE | 2017-04-01 06:51 | Orthopedics Progress Note ---
Date of Encounter: 04/01/17 Time of Encounter: 06:51 - Assessment and Plan (1) Breast cancer, left Current Visit: No Status: Chronic Qualifiers: Breast location: unspecified site of breast Estrogen receptor status: unspecified Patient sex: female Qualified Code(s): C50.912 - Malignant neoplasm of unspecified site of left female breast (2) TIA (transient ischemic attack) Current Visit: No Status: Chronic Qualifiers: Transient cerebral ischemia type: other Qualified Code(s): G45.8 - Other transient cerebral ischemic attacks and related syndromes (3) HLD (hyperlipidemia) Current Visit: Yes Status: Chronic Qualifiers: Hyperlipidemia type: pure hypercholesterolemia Qualified Code(s): E78.00 - Pure hypercholesterolemia, unspecified; E78.0 - Pure hypercholesterolemia (4) Depression Current Visit: No Status: Acute Qualifiers: Depression Type: major depressive disorder Major depression recurrence: single episode Active/Remission status: in full remission Qualified Code(s) : F32.5 - Major depressive disorder, single episode, in full remission (5) HTN (hypertension) Current Visit: Yes Status: Chronic Qualifiers: Hypertension type: essential hypertension Qualified Code(s): I10 - Essential (primary) hypertension (6) Acute CVA (cerebrovascular accident) Current Visit: No Status: Suspected (7) Patent foramen ovale with atrial septal aneurysm Current Visit: Yes Status: Chronic (8) Arthritis of left hip Current Visit: No Status: Chronic (9) Status post total hip replacement, left Current Visit: No Status: Acute (10) Obesity Current Visit: No Status: Chronic Qualifiers: Obesity type: due to excess calories Obesity classification: adult class 1 (BMI 30 - 34.9) Serious obesity comorbidity presence: unspecified whether serious comorbidity present Body mass index: BMI 32.0-32.9 Qualified Code(s) : E66.09 - Other obesity due to excess calories; Z68.32 - Body mass index (BMI) 32.0-32.9, adult; Z68.32 - Body mass index (BMI) 32.0-32.9, adult (11) Anticoagulated Current Visit: No Status: Chronic (12) Acute blood loss anemia Current Visit: Yes Status: Acute (13) Acute respiratory failure with hypoxia Current Visit: Yes Status: Acute Subjective Principal diagnosis: Left hip pain Interval history: Patient was seen this morning on the orthopedic floor doing better. Afebrile vital signs stable. Operative extremity: Neurovascularly intact Dressing clean dry and intact Calves nontender Assessment and plan: Continue with postoperative care Discharge today held yesterday secondary to monitoring creatinine creatinine improving plan for discharge today Objective Vital signs: Vital Signs Temp Pulse Resp BP Pulse Ox 04/01/17 06:38 98.3 F 74 16 129/71 93 04/01/17 04:09 98.3 F 88 19 131/81 96 04/01/17 00:32 98.1 F 85 18 140/84 95 03/31/17 22:48 18 93 03/31/17 19:59 98.4 F 99 18 146/81 95 03/31/17 16:33 98.7 F 89 16 134/72 91 03/31/17 16:25 93 03/31/17 16:10 16 94 03/31/17 12:46 99.0 F 67 16 159/88 98 03/31/17 10:14 16 96 03/31/17 08:27 97.9 F 79 16 147/74 94 Intake and Output 03/31/17 03/31/17 04/01/17 15:59 23:59 07:59 Intake Total 1305 / 1305 360 / 360 Output Total 1000 / 1000 500 / 500 1800 / 1800 Balance 305 / 305 -140 / -140 -1800 / -1800 Intake: IV Fluids 485 / 485 0.9 % Sodium Chloride 1,000 ML 385 / 385 @ 50 mls/hr IVC .Q20H O[facility] Rx#: [id number] Zosyn 3.375 GM In Dextrose 5% ( 50 / 50 ADD-[place]) 50 ML @ 12.5 mls/ hr IVPB Q12H OJ Rx#:[id number] Oral 820 / 820 360 / 360 Output: Urine 1000 / 1000 500 / 500 1800 / 1800 Other: Meal Lunch Dinner Percent of Meal Consumed 90% 100% # Voids 2 Weight 97.6 kg Patient Weight 04/01/17 23:59 Weight 97.6 kg - Labs CBC & BMP: 03/30/17 04:59 04/01/17 05:30 Labs: Abnormal lab results RBC 2.99 M/mcL (3.82-4.97) L 03/30/17 04:59 Hgb 9.2 g/dL (11.5-15.4) L 03/30/17 04:59 Hct 28.2 % (35.3-44.9) L 03/30/17 04:59 RDW 14.8 % (11.5-14.5) H 03/30/17 04:59 Nucleated RBCs/100 WBC 0.2 /100 WBC (0) H 03/26/17 18:09 PT 21.1 Seconds (9.4-12.1) H 04/01/17 05:30 APTT 16.6 Seconds (26.0-36.0) L 03/26/17 18:09 ABG pO2 62 mmHg (85-104) L 03/29/17 04:42 ABG O2 Saturation 92 % (95-98) L 03/29/17 04:42 Chloride 110 mEq/L (98-109) H 04/01/17 05:30 BUN 36 mg/dL (7-20) H 04/01/17 05:30 Creatinine 2.46 mg/dL (0.57-1.11) H 04/01/17 05:30 Est GFR ( Amer) 23 (> 60) L 04/01/17 05:30 Est GFR (Non-Af Amer) 19 (> 60) L 04/01/17 05:30 Glucose 101 mg/dL (70-99) H 04/01/17 05:30 POC Glucose 143 (58-89) H 03/26/17 18:06 Lactic Acid 2.7 mmol/L (0.5-2.2) H 03/26/17 18:09 Calcium 8.2 mg/dL (8.6-10.8) L 04/01/17 05:30 AST 85 Units/L (5-34) H 03/26/17 18:09 ALT 56 Units/L (0-55) H 03/26/17 18:09 Creatine Kinase 481 U/L (20-180) H 03/27/17 01:15 Serum Total Protein 5.8 g/dL (6.0-8.3) L 03/26/17 18:09 Albumin 2.8 g/dL (3.5-5.0) L 03/26/17 18:09 Albumin/Globulin Ratio 0.9 (1.1-2.2) L 03/26/17 18:09 - VTE Documentation of Mechanical Device: Venous foot pump, device Consult Discharge Plan - Plan Referrals: Kobe Silverman MD [Partnered Physician] - Rodríguez Sousa DO [Primary Care Provider] - Prescriptions: Ipratropium/Albuterol Neb [Duoneb] 3 ml IH [id number] PRN #30 inhsol PRN Reason: Shortness Of Breath/Wheezing Multivit/Ca/Min/Fe/FA [Thera M Plus] 1 tab PO DAILY #30 tablet OxyCODONE Immed Rel [Roxicodone 5 MG] 5 mg PO Q6HR PRN #10 tablet PRN Reason: Moderate pain 4-6
[2017-04-01] MEDS: Multivit/Ca/Min/Fe/FA 1 TAB TABLET PO SCH (09:45)
[2017-04-01] MEDS: Ascorbic Acid 500 MG TABLET PO SCH (09:45)
[2017-04-01] MEDS: Letrozole 2.5 MG TABLET PO SCH (09:46)
[2017-04-01] MEDS: 0.9 % Sodium Chloride 1,000 ML IVC SCH (09:47)
--- NOTE | 2017-04-01 09:48 | Internal Med Progress Note ---
Date of Encounter: 04/01/17 Time of Encounter: 09:30 - Assessment and plan (1) Acute respiratory failure with hypoxia Current Visit: Yes Status: Acute Assessment and plan: Acute hypoxic respiratory failure - unclear etiology - patient currently on O2 via nasal cannula, BiPAP has been discontinued - symptoms now improved Continue DuoNeb breathing treatment, IV Zosyn course complete CTA chest - negative for PE, mild patchy opacities in the right apex, small noncalcified pulmonary nodule EKG - no acute ST-T changes Troponin - 0.01 Echocardiogram - LVEF 65%, mild LV diastolic dysfunction, normal RV, aneurysmal interatrial septum ABG - reviewed Initial suspicion of PE or fat embolism has been ruled out, unlikely to be CHF 03/30 - doing well on O2 via nasal cannula at 2 L/m. Patient will need home O2 qualification test. Serum creatinine is elevated, we will try gentle IV hydration. Repeat labs in a.m. She will need outpatient follow-up pulmonology. Anticipate discharge to ECF tomorrow. 03/31 - patient sitting up comfortably in chair. Doing well on O2 via nasal cannula at 2 L. Serum creatinine is elevated again today. Continue IV hydration and encourage by mouth fluids. Anticipate discharge to ECF soon when serum creatinine is trending down. No new complaints or acute events. 04/01 - serum creatinine is trending down. Denies chest pain or shortness of breath. States she feels better. Repeat PT/INR in one day. Repeat BMP in 2 days time. Coumadin dose to be adjusted by PCP. Discharge to ECF today. 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 Silverman 03/30 - continue PT/OT. Anticipate discharge to ECF tomorrow. Repeat BMP in a.m. 03/31 - patient is doing well at this time. Serum creatinine is elevated. Repeat BMP and discharge to ECF soon. 04/01 - discharge to ECF today. PT/INR in one day. repeat BMP in 2 days (3) HLD (hyperlipidemia) Current Visit: Yes Status: Chronic Assessment and plan: Continue home dose of Lovastatin Qualifiers: Hyperlipidemia type: pure hypercholesterolemia Qualified Code(s): E78.00 - Pure hypercholesterolemia, unspecified; E78.0 - Pure hypercholesterolemia (4) HTN (hypertension) Current Visit: Yes Status: Chronic Assessment and plan: Essential hypertension, controlled, monitor Continue home dose of Tenormin Qualifiers: Hypertension type: essential hypertension Qualified Code(s): I10 - Essential (primary) hypertension (5) History of left breast cancer Current Visit: No Status: Chronic Assessment and plan: 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 Continue home dose of Letrozole Follows up regularly with oncology (6) H/O: CVA (cerebrovascular accident) Current Visit: Yes Status: Chronic Assessment and plan: History of bihemispheric cerebral lacunar infarcts within the right precentral gyrus and left parietotemporal lobe No obvious residual hemiparesis Patient is on Lovastatin and Coumadin at home Patient does have a history of PFO and that is why she is on anticoagulation with Coumadin INR has been therapeutic (7) Patent foramen ovale with atrial septal aneurysm Current Visit: Yes Status: Chronic Assessment and plan: PFO with atrial septal aneurysm - seen is a small mobile echodensity in the LA Continue Coumadin for anticoagulation INR has been therapeutic, monitor PT/INR (8) DVT prophylaxis Current Visit: Yes Status: Acute Assessment and plan: Continue Coumadin for anticoagulation INR is therapeutic, monitor PT/INR pharmacy and PCP to dose Coumadin - Time Spent With Patient 25 - 35 minutes - Subjective Interval history: Examined this morning. Patient is awake and alert. Not in any distress. She is sitting up in chair. Doing well on O2 via nasal cannula. No fever. Hemodynamically stable. Tolerating oral diet. She denies chest pain or shortness of breath. No other acute events or complaints. States she feels better. Ambulating with assistance. Serum creatinine is trending down. Discharged to ECF today. Echocardiogram reveals LVEF 65% with normal LV size and function, normal RV size and function. CTA chest is negative for PE, mild patchy opacities and a small noncalcified pulmonary nodule seen. She is currently on DuoNeb breathing treatment and also on Zosyn and Vancomycin. Pulmonology has evaluated the patient. - Constitutional Vitals: Temp Pulse Resp BP Pulse Ox 98.3 F 74 16 129/71 93 04/01/17 06:38 04/01/17 06:38 04/01/17 06:38 04/01/17 06:38 04/01/17 06:38 General appearance: Present: cooperative, A&O X 3, pleasant, no acute distress, answers questions appropriately - Head Head exam: Present: atraumatic - Eye Eye exam: Present: EOMI - ENT ENT exam: Present: mucous membranes moist - Respiratory Respiratory exam: Present: CTAB. Absent: accessory muscle use, chest wall tenderness, rales, rhonchi, wheezes, tachypnea - Cardiovascular Cardiovascular exam: Present: RRR, +S1, +S2 - GI/Abdominal GI/Abdominal exam: Present: soft. Absent: distended, firm, guarding, tenderness - Extremities Exam Extremities exam: Present: radial pulses palpable and symmetrical. Absent: calf tenderness, cyanotic, pedal edema Additional comments: Left total hip replacement - Neurological Exam Neurological exam: Present: alert, oriented X3, no focal deficits. Absent: facial droop, speech deficit Internal Medicine: Result - Labs CBC & Chem 7: 03/30/17 04:59 04/01/17 05:30 Labs: BMP 04/01/17 05:30 Sodium 139 Potassium 4.3 Chloride 110 H Carbon Dioxide 20 BUN 36 H Creatinine 2.46 H Glucose 101 H Calcium 8.2 L - ABG Interpretation ABG results: ABG ABG pH 7.41 pH Units (7.32-7.45) 03/29/17 04:42 ABG pCO2 36 mmHg (35-45) 03/29/17 04:42 ABG pO2 62 mmHg (85-104) L 03/29/17 04:42 ABG O2 Saturation 92 % (95-98) L 03/29/17 04:42 PT/INR, D-dimer PT 21.1 Seconds (9.4-12.1) H 04/01/17 05:30 - VTE Documentation of Mechanical Device: Venous foot pump, device Consult Discharge Plan - Plan Referrals: Kobe Silverman MD [Partnered Physician] - Rodríguez Sousa DO [Primary Care Provider] - Prescriptions: Ipratropium/Albuterol Neb [Duoneb] 3 ml IH [id number] PRN #30 inhsol PRN Reason: Shortness Of Breath/Wheezing OxyCODONE Immed Rel [Roxicodone 5 MG] 5 mg PO Q6HR PRN #10 tablet PRN Reason: Moderate pain 4-6 Multivit/Ca/Min/Fe/FA [Thera M Plus] 1 tab PO DAILY #30 tablet
== END 2017-04-01 12:20 | DRG 469 ==
LOC: SAMDAY 06:10 → 3NENU 10:37 → ICNU 18:08 → 3NENU 03-29 10:19
PROVIDERS: ADMIT Orthopaedic Surgery; ATTEND Orthopaedic Surgery